=== PATIENT | female | born 1945 | race Caucasian/White ===

== ENCOUNTER 2018-10-10 03:44 | Inpatient (IN) | payer MEDICARE ==
[2018-10-10 04:58] VITALS: BP 129/84
[2018-10-10] MEDS ORDERED: Maalox 30 mL Cup PO PRN (04:59)
[2018-10-10] MEDS ORDERED: Magnesium Hydroxide (MOM) 30 mL UDC PO PRN (04:59)
[2018-10-10] MEDS ORDERED: Albuterol/Ipratropium Neb 3 ML AERS HHN PRN (05:35)
[2018-10-10 06:42] LABS: ALB/GLOB RATIO 1.7 (1.0-1.8); ALBUMIN 3.9 gm/dL (3.7-5.3); ALKALINE PHOSPHATASE 58 U/L (34-104); ANION GAP 11.1 (7.0-16.0); BILIRUBIN,TOTAL 0.4 mg/dL (0.3-1.0); BUN - UREA NITROGEN 21 mg/dL (7-25); CALCIUM SERUM 8.9 mg/dL (8.6-10.3); CARBON DIOXIDE 27.6 mEq/L (21.0-31.0); CHLORIDE 104 mEq/L (98-107); CHOLESTEROL 149 mg/dL (<200); GLUCOSE 114 mg/dL (70-105); HDL -HIGH DENSITY LIPOPROTEIN 60 mg/dL (23-92); POTASSIUM SERUM 3.7 mEq/L (3.5-5.1); SGOT 14 U/L (13-39); SGPT/ALT 9 U/L (7-52); SODIUM SERUM 139 mEq/L (136-145); TOTAL PROTEIN,SERUM 6.2 gm/dL (6.0-8.3); TRIGLYCERIDES 100 mg/dL (<150)
[2018-10-10] MEDS: Albuterol/Ipratropium Neb 3 ML AERS HHN SCH ×3 (06:46→19:05)
[2018-10-10] MEDS: Pantoprazole 40 mg/Packet PO SCH ×2 (07:00→10:00)
[2018-10-10] MEDS ORDERED: Albuterol/Ipratropium Neb 3 ML AERS HHN SCH (07:00)
[2018-10-10] MEDS: Atorvastatin Calcium 10 MG TAB PO SCH (10:00)
--- NOTE | 2018-10-10 13:46 | History & Physical ---
ADMIT DATE: 10/10/2018 IDENTIFYING INFORMATION: The patient is a 73-year-old female. CHIEF COMPLAINT: "I don't know." HISTORY OF PRESENT ILLNESS: The patient reports "I am in good shape." She does not know where she is. She did not know why she is here. She does not know why they sent her here. She was a very poor historian. She was sent here because of agitation and psychosis. The patient is unable to give me any information or participate in meaningful conversation, cannot tell me her age, where she is, why she is here. She believes that she is single. She believes she may have to 2 kids. She was not sure. PAST PSYCHIATRIC HISTORY: Unable to participate or let me know if she has any prior psychiatric treatment. MEDICAL HISTORY: No known drug allergies. PAST MEDICAL HISTORY: The patient has a history of bronchial asthma, hypertension, hyperlipidemia, and constipation. MEDICATIONS: The patient has been on Lexapro 20 mg daily, Namenda 5 mg twice a day, Seroquel 12.5 mg 3 times a day and Geodon 20 mg twice a day. FAMILY AND SOCIAL HISTORY: The patient is not sure if she is . She believes she is single. She believes she may have 2 children. Unable to give further information regarding education because of her dementia. MENTAL STATUS EXAMINATION: The patient is appropriately dressed and well groomed. She was feeding herself. She was alert, unable tell me her age, where she is, why she is here. She reports "I am in good shape", unable to tell me the date, unable to tell me anything about her, how far she went in school. She did for living. She denies any auditory or visual hallucination or paranoia. She denies any current intent to harm herself. Long-term memory is poor. She cannot remember her age, her date of . Recent memory is poor. She cannot remember coming here where she came from. She denies any individuals or paranoia. Her insight and judgment is fair. She does not know that she has a problem. Judgment is poor with her agitated behavior. 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 MEDICAL DIAGNOSES: Asthma, hyperlipidemia and hypertension. INITIAL TREATMENT PLAN: The patient will be continued with Lexapro and we will continue with the Namenda 5 mg twice a day, beating on Geodon keep on Seroquel. ESTIMATED LENGTH OF STAY: 3-7 days. DISCHARGE CRITERIA: Decrease agitation, psychosis after discharge outpatient. JOB# [id number]
--- NOTE | 2018-10-10 20:50 | History & Physical ---
ADMIT DATE: 10/10/2018 HISTORY OF PRESENT ILLNESS: The patient is a 73-year-old female with history of hypertension, COPD, hyperlipidemia, dementia, psychosis, admitted to [facility] Department under Dr. Crow's service. The patient denies any chest pain, shortness of breath, nausea, vomiting, fever or chills. PAST MEDICAL HISTORY: Significant for hypertension, hyperlipidemia, COPD, dementia. PAST SURGICAL HISTORY: No recent surgery. ALLERGIES: None. MEDICATIONS: Follow admission reconciliation. SOCIAL HISTORY: Chronic smoker. No alcohol or drug. FAMILY HISTORY: Noncontributory. REVIEW OF SYSTEMS: RENAL SYSTEM: No history of chronic renal disorder. CARDIOVASCULAR SYSTEM: No coronary artery disease. ENDOCRINE SYSTEM: She has no diabetes or thyroid problem. GASTROINTESTINAL SYSTEM: No upper or lower gastrointestinal bleed. NEUROLOGICAL SYSTEM: Seizure disorder. MUSCULOSKELETAL SYSTEM: No muscular dystrophy. HEMATOLOGIC SYSTEM: No bleeding tendency. RESPIRATORY SYSTEM: She has history of COPD. GENITOURINARY SYSTEM: No dysuria or hematuria. PHYSICAL EXAMINATION: GENERAL: She is awake, alert, confused. VITAL SIGNS: Temperature 98, heart rate 71, blood pressure 131/77. HEENT: Normocephalic. Pupils reacting to light and accommodation. Sclerae clear. NECK: Supple. Negative for lymphadenopathy, JVD or bruit. CHEST: Entry of air bilaterally mildly diminished. No wheezing. HEART: S1, S2 normal. No gallop rhythm. ABDOMEN: Soft, bowel sounds positive. EXTREMITIES: No edema. NEUROLOGIC: Awake, alert, confused. No focal motor deficits. Cranial nerves 2-12 is intact. LABORATORY DATA: Sodium 139, potassium 3.7, BUN 21, creatinine . ASSESSMENT: 1. Hypertension. 2. Hyperlipidemia. 3. Chronic obstructive pulmonary disease. 4. Dementia. 5. Psychosis. PLAN: The patient admitted to the hospital under Dr. Crow's service. Medical problems addressed during hospitalization are psychosis and dementia. Medical problems addressed at discharge are hypertension, hyperlipidemia, COPD. The patient is medically stable for activity. Thank you, Dr. Crow for asking me to see your patient. The patient cleared for activity. JOB# [id number]
[2018-10-11] MEDS: Albuterol/Ipratropium Neb 3 ML AERS HHN SCH ×5 (00:41→20:14)
[2018-10-11] MEDS ORDERED: Pantoprazole 40 mg EC Tab PO SCH (06:30)
[2018-10-11] MEDS: Atorvastatin Calcium 10 MG TAB PO SCH (09:39)
[2018-10-11] MEDS: Nicotine 21 mg/24 hr Tdm TD SCH (10:00)
--- NOTE | 2018-10-11 21:00 | Internal Medicine Prog Note ---
Internal Medicine Subjective - Subjective Service Date: 10/11/18 Patient seen and examined:: with staff Patient is:: awake, verbal, ambulating, confused Per staff patient has:: no adverse event Internal Medicine Objective - Results Result Diagrams: 10/10/18 06:09 Recent Labs: Laboratory Last Values Sodium 139 mEq/L (136-145) 10/10/18 06:09 Potassium 3.7 mEq/L (3.5-5.1) 10/10/18 06:09 Chloride 104 mEq/L (98-107) 10/10/18 06:09 Carbon Dioxide 27.6 mEq/L (21.0-31.0) 10/10/18 06:09 Anion Gap 11.1 (7.0-16.0) 10/10/18 06:09 BUN 21 mg/dL (7-25) 10/10/18 06:09 Creatinine 1.0 mg/dL (0.6-1.2) 10/10/18 06:09 Est GFR ( Amer) TNP 10/10/18 06:09 Est GFR (Non-Af Amer) TNP 10/10/18 06:09 BUN/Creatinine Ratio 21.0 10/10/18 06:09 Glucose 114 mg/dL (70-105) H 10/10/18 06:09 POC Glucose 113 MG/DL (70 - 105) H 10/10/18 04:27 Calcium 8.9 mg/dL (8.6-10.3) 10/10/18 06:09 Total Bilirubin 0.4 mg/dL (0.3-1.0) 10/10/18 06:09 AST 14 U/L (13-39) 10/10/18 06:09 ALT 9 U/L (7-52) 10/10/18 06:09 Alkaline Phosphatase 58 U/L (34-104) 10/10/18 06:09 Total Protein 6.2 gm/dL (6.0-8.3) 10/10/18 06:09 Albumin 3.9 gm/dL (3.7-5.3) 10/10/18 06:09 Globulin 2.3 gm/dL 10/10/18 06:09 Albumin/Globulin Ratio 1.7 (1.0-1.8) 10/10/18 06:09 Triglycerides 100 mg/dL (<150) 10/10/18 06:09 Cholesterol 149 mg/dL (<200) 10/10/18 06:09 LDL Cholesterol Direct 70 mg/dL (75-193) L 10/10/18 06:09 HDL Cholesterol 60 mg/dL (23-92) 10/10/18 06:09 - Physical Exam Vitals and I&O: Vital Signs Temp 98.5 F 10/11/18 19:59 Pulse 68 10/11/18 20:15 Resp 20 10/11/18 20:15 BP 133/72 10/11/18 19:59 Pulse Ox 94 10/11/18 20:15 Intake & Output 10/11/18 10/11/18 10/12/18 06:59 18:59 06:59 Intake Total 240 120 Balance 240 120 Intake: Oral 240 120 Other: # Voids 2 3 # Bowel Movements 0 Active Medications: Current Medications Acetaminophen (Tylenol) 650 mg PO Q4HR PRN PRN Reason: Mild Pain / Temp above 100 Stop: 12/09/18 04:58 Al Hydrox/Mg Hydrox/Simethicone (Maalox) 30 ml PO Q4HR PRN PRN Reason: GI DISTRESS Stop: 12/09/18 04:58 Albuterol/Ipratropium (Duoneb Neb) 3 ml HHN Q6HRT [facility] Stop: 12/09/18 06:59 Last Admin: 10/11/18 20:14 Dose: 3 ml Amlodipine Besylate (Norvasc) 2.5 mg PO DAILY [facility] Stop: 12/09/18 08:59 Last Admin: 10/11/18 09:39 Dose: 2.5 mg Atenolol (Tenormin) 25 mg PO DAILY [facility] Stop: 12/09/18 08:59 Last Admin: 10/11/18 09:41 Dose: 25 mg Atorvastatin Calcium (Lipitor) 10 mg PO DAILY [facility]; Protocol Stop: 12/09/18 08:59 Last Admin: 10/11/18 09:39 Dose: 10 mg Docusate Sodium (Colace) 100 mg PO BID [facility] Stop: 12/09/18 08:59 Last Admin: 10/11/18 16:49 Dose: 100 mg Escitalopram Oxalate (Lexapro) 20 mg PO DAILY [facility]; Protocol Stop: 12/09/18 08:59 Last Admin: 10/11/18 09:39 Dose: 20 mg Lorazepam (Ativan) 0.5 mg PO Q4HR PRN; Protocol PRN Reason: Agitation Stop: 11/09/18 04:58 Magnesium Hydroxide (Milk Of Magnesia) 30 ml PO HS PRN PRN Reason: Constipation Memantine (Namenda) 5 mg PO BID [facility] Stop: 12/09/18 08:59 Last Admin: 10/11/18 16:49 Dose: 5 mg Nicotine (Nicotine Transdermal System) 21 mg TD DAILY [facility] Stop: 12/10/18 08:59 Last Admin: 10/11/18 10:00 Dose: 21 mg Pantoprazole Sodium (Protonix) 40 mg PO DAILY [facility] Stop: 12/11/18 06:29 Quetiapine Fumarate (Seroquel) 12.5 mg PO TIDWM [facility]; Protocol Stop: 12/09/18 08:59 Last Admin: 10/11/18 16:49 Dose: 12.5 mg Zolpidem Tartrate (Ambien) 5 mg PO HS PRN PRN Reason: Insomnia Stop: 12/09/18 04:58 Last Admin: 10/10/18 21:23 Dose: 5 mg General: demented HEENT: NC/AT, PERRLA, EOMI, anicteric sclerae, throat clear Neck: Supple, No JVD, No thyromegaly, +2 carotid pulse wo bruit Lungs: CTAB Cardiovascular: RRR, Normal S1, Normal S2, without murmur Abdomen: soft, non-tender, non-distended Extremities: clear Neurological: no change Internal Medicine Assmt/Plan - Assessment Assessment: 1.HTN. 2.HYPERLIPIDEMIA. 3.COPD. 4.DEMENTIA. 5.PSYCHSIS. - Plan Plan: CONTINUE ON CURRENT MEDICATION AND DIET.
[2018-10-12] MEDS: Albuterol/Ipratropium Neb 3 ML AERS HHN SCH ×4 (01:09→19:57)
--- NOTE | 2018-10-12 01:47 | Progress Notes ---
DATE: 10/11/2018 Case was discussed with staff of the patient, reviewed records. The patient continues to be demented, confused, very poor insight. She is getting breathing treatment today, unable to explain herself or make safe plan for self-care. Does not know where she is, why she is here. She said that she maybe has 2 kids. She has been compliant with the medication with no side effects, no sedation, no nausea, no extrapyramidal symptoms. We will continue to work with the patient in group therapy, milieu therapy and adjust the medications as needed. JOB# [id number]
[2018-10-12] MEDS: Pantoprazole 40 mg EC Tab PO SCH (10:01)
[2018-10-12] MEDS: Atorvastatin Calcium 10 MG TAB PO SCH (10:01)
[2018-10-12] MEDS: Nicotine 21 mg/24 hr Tdm TD SCH (10:05)
--- NOTE | 2018-10-12 19:12 | Internal Medicine Prog Note ---
Internal Medicine Subjective - Subjective Service Date: 10/12/18 Patient seen and examined:: with staff Patient is:: awake, verbal, ambulating, confused Per staff patient has:: no adverse event Internal Medicine Objective - Results Result Diagrams: 10/10/18 06:09 Recent Labs: Laboratory Last Values Sodium 139 mEq/L (136-145) 10/10/18 06:09 Potassium 3.7 mEq/L (3.5-5.1) 10/10/18 06:09 Chloride 104 mEq/L (98-107) 10/10/18 06:09 Carbon Dioxide 27.6 mEq/L (21.0-31.0) 10/10/18 06:09 Anion Gap 11.1 (7.0-16.0) 10/10/18 06:09 BUN 21 mg/dL (7-25) 10/10/18 06:09 Creatinine 1.0 mg/dL (0.6-1.2) 10/10/18 06:09 Est GFR ( Amer) TNP 10/10/18 06:09 Est GFR (Non-Af Amer) TNP 10/10/18 06:09 BUN/Creatinine Ratio 21.0 10/10/18 06:09 Glucose 114 mg/dL (70-105) H 10/10/18 06:09 POC Glucose 113 MG/DL (70 - 105) H 10/10/18 04:27 Calcium 8.9 mg/dL (8.6-10.3) 10/10/18 06:09 Total Bilirubin 0.4 mg/dL (0.3-1.0) 10/10/18 06:09 AST 14 U/L (13-39) 10/10/18 06:09 ALT 9 U/L (7-52) 10/10/18 06:09 Alkaline Phosphatase 58 U/L (34-104) 10/10/18 06:09 Total Protein 6.2 gm/dL (6.0-8.3) 10/10/18 06:09 Albumin 3.9 gm/dL (3.7-5.3) 10/10/18 06:09 Globulin 2.3 gm/dL 10/10/18 06:09 Albumin/Globulin Ratio 1.7 (1.0-1.8) 10/10/18 06:09 Triglycerides 100 mg/dL (<150) 10/10/18 06:09 Cholesterol 149 mg/dL (<200) 10/10/18 06:09 LDL Cholesterol Direct 70 mg/dL (75-193) L 10/10/18 06:09 HDL Cholesterol 60 mg/dL (23-92) 10/10/18 06:09 - Physical Exam Vitals and I&O: Vital Signs Temp 97.9 F 10/12/18 14:00 Pulse 63 10/12/18 14:00 Resp 20 10/12/18 14:00 BP 147/72 10/12/18 14:00 Pulse Ox 98 10/12/18 14:00 Intake & Output 10/12/18 10/12/18 10/13/18 06:59 18:59 06:59 Intake Total 370 1000 Balance 370 1000 Intake: Oral 370 1000 Other: # Voids 3 4 # Bowel Movements 0 1 Active Medications: Current Medications Acetaminophen (Tylenol) 650 mg PO Q4HR PRN PRN Reason: Mild Pain / Temp above 100 Stop: 12/09/18 04:58 Al Hydrox/Mg Hydrox/Simethicone (Maalox) 30 ml PO Q4HR PRN PRN Reason: GI DISTRESS Stop: 12/09/18 04:58 Albuterol/Ipratropium (Duoneb Neb) 3 ml HHN Q6HRT [facility] Stop: 12/09/18 06:59 Last Admin: 10/12/18 13:33 Dose: Not Given Amlodipine Besylate (Norvasc) 2.5 mg PO DAILY [facility] Stop: 12/09/18 08:59 Last Admin: 10/12/18 10:17 Dose: 2.5 mg Atenolol (Tenormin) 25 mg PO DAILY [facility] Stop: 12/09/18 08:59 Last Admin: 10/12/18 10:17 Dose: 25 mg Atorvastatin Calcium (Lipitor) 10 mg PO DAILY [facility]; Protocol Stop: 12/09/18 08:59 Last Admin: 10/12/18 10:01 Dose: 10 mg Docusate Sodium (Colace) 100 mg PO BID [facility] Stop: 12/09/18 08:59 Last Admin: 10/12/18 17:02 Dose: 100 mg Escitalopram Oxalate (Lexapro) 20 mg PO DAILY [facility]; Protocol Stop: 12/09/18 08:59 Last Admin: 10/12/18 10:01 Dose: 20 mg Lorazepam (Ativan) 0.5 mg PO Q4HR PRN; Protocol PRN Reason: Agitation Stop: 11/09/18 04:58 Last Admin: 10/11/18 23:10 Dose: 0.5 mg Magnesium Hydroxide (Milk Of Magnesia) 30 ml PO HS PRN PRN Reason: Constipation Memantine (Namenda) 5 mg PO BID [facility] Stop: 12/09/18 08:59 Last Admin: 10/12/18 17:02 Dose: 5 mg Nicotine (Nicotine Transdermal System) 21 mg TD DAILY [facility] Stop: 12/10/18 08:59 Last Admin: 10/12/18 10:05 Dose: 21 mg Pantoprazole Sodium (Protonix) 40 mg PO DAILY [facility] Stop: 12/11/18 06:29 Last Admin: 10/12/18 10:01 Dose: 40 mg Quetiapine Fumarate (Seroquel) 12.5 mg PO TIDWM [facility]; Protocol Stop: 12/09/18 08:59 Last Admin: 10/12/18 17:02 Dose: 12.5 mg Zolpidem Tartrate (Ambien) 5 mg PO HS PRN PRN Reason: Insomnia Stop: 12/09/18 04:58 Last Admin: 10/11/18 21:00 Dose: 5 mg General: demented HEENT: NC/AT, PERRLA, EOMI, anicteric sclerae, throat clear Neck: Supple, No JVD, No thyromegaly, +2 carotid pulse wo bruit Lungs: CTAB Cardiovascular: RRR, Normal S1, Normal S2, without murmur Abdomen: soft, non-tender, non-distended Extremities: clear Neurological: no change Internal Medicine Assmt/Plan - Assessment Assessment: 1.HTN. 2.HYPERLIPIDEMIA. 3.COPD. 4.DEMENTIA. 5.PSYCHSIS. - Plan Plan: CONTINUE ON CURRENT MEDICATION AND DIET.
[2018-10-13] MEDS: Albuterol/Ipratropium Neb 3 ML AERS HHN SCH ×4 (01:25→20:01)
[2018-10-13] MEDS: Atorvastatin Calcium 10 MG TAB PO SCH (08:31)
[2018-10-13] MEDS: Pantoprazole 40 mg EC Tab PO SCH (08:31)
[2018-10-13] MEDS: Nicotine 21 mg/24 hr Tdm TD SCH (09:50)
--- NOTE | 2018-10-13 10:58 | Internal Medicine Prog Note ---
Internal Medicine Subjective - Subjective Service Date: 10/13/18 Patient seen and examined:: without staff (SHE IS DOING BETTER,LESS CONFUSED.) Patient is:: awake, verbal, ambulating, confused Per staff patient has:: no adverse event Internal Medicine Objective - Results Result Diagrams: 10/10/18 06:09 Recent Labs: Laboratory Last Values Sodium 139 mEq/L (136-145) 10/10/18 06:09 Potassium 3.7 mEq/L (3.5-5.1) 10/10/18 06:09 Chloride 104 mEq/L (98-107) 10/10/18 06:09 Carbon Dioxide 27.6 mEq/L (21.0-31.0) 10/10/18 06:09 Anion Gap 11.1 (7.0-16.0) 10/10/18 06:09 BUN 21 mg/dL (7-25) 10/10/18 06:09 Creatinine 1.0 mg/dL (0.6-1.2) 10/10/18 06:09 Est GFR ( Amer) TNP 10/10/18 06:09 Est GFR (Non-Af Amer) TNP 10/10/18 06:09 BUN/Creatinine Ratio 21.0 10/10/18 06:09 Glucose 114 mg/dL (70-105) H 10/10/18 06:09 POC Glucose 113 MG/DL (70 - 105) H 10/10/18 04:27 Calcium 8.9 mg/dL (8.6-10.3) 10/10/18 06:09 Total Bilirubin 0.4 mg/dL (0.3-1.0) 10/10/18 06:09 AST 14 U/L (13-39) 10/10/18 06:09 ALT 9 U/L (7-52) 10/10/18 06:09 Alkaline Phosphatase 58 U/L (34-104) 10/10/18 06:09 Total Protein 6.2 gm/dL (6.0-8.3) 10/10/18 06:09 Albumin 3.9 gm/dL (3.7-5.3) 10/10/18 06:09 Globulin 2.3 gm/dL 10/10/18 06:09 Albumin/Globulin Ratio 1.7 (1.0-1.8) 10/10/18 06:09 Triglycerides 100 mg/dL (<150) 10/10/18 06:09 Cholesterol 149 mg/dL (<200) 10/10/18 06:09 LDL Cholesterol Direct 70 mg/dL (75-193) L 10/10/18 06:09 HDL Cholesterol 60 mg/dL (23-92) 10/10/18 06:09 - Physical Exam Vitals and I&O: Vital Signs Temp 99.0 F 10/13/18 06:26 Pulse 75 10/13/18 08:32 Resp 18 10/13/18 07:41 BP 141/85 10/13/18 08:32 Pulse Ox 94 10/13/18 06:26 Intake & Output 10/12/18 10/13/18 10/13/18 18:59 06:59 18:59 Intake Total 1000 300 Balance 1000 300 Intake: Oral 1000 300 Other: # Voids 4 2 # Bowel Movements 1 0 Active Medications: Current Medications Acetaminophen (Tylenol) 650 mg PO Q4HR PRN PRN Reason: Mild Pain / Temp above 100 Stop: 12/09/18 04:58 Al Hydrox/Mg Hydrox/Simethicone (Maalox) 30 ml PO Q4HR PRN PRN Reason: GI DISTRESS Stop: 12/09/18 04:58 Albuterol/Ipratropium (Duoneb Neb) 3 ml HHN Q6HRT [facility] Stop: 12/09/18 06:59 Last Admin: 10/13/18 07:41 Dose: Not Given Amlodipine Besylate (Norvasc) 2.5 mg PO DAILY [facility] Stop: 12/09/18 08:59 Last Admin: 10/13/18 08:31 Dose: 2.5 mg Atenolol (Tenormin) 25 mg PO DAILY [facility] Stop: 12/09/18 08:59 Last Admin: 10/13/18 08:32 Dose: 25 mg Atorvastatin Calcium (Lipitor) 10 mg PO DAILY [facility]; Protocol Stop: 12/09/18 08:59 Last Admin: 10/13/18 08:31 Dose: 10 mg Docusate Sodium (Colace) 100 mg PO BID [facility] Stop: 12/09/18 08:59 Last Admin: 10/13/18 08:32 Dose: 100 mg Escitalopram Oxalate (Lexapro) 20 mg PO DAILY [facility]; Protocol Stop: 12/09/18 08:59 Last Admin: 10/13/18 08:32 Dose: 20 mg Lorazepam (Ativan) 0.5 mg PO Q4HR PRN; Protocol PRN Reason: Agitation Stop: 11/09/18 04:58 Last Admin: 10/11/18 23:10 Dose: 0.5 mg Magnesium Hydroxide (Milk Of Magnesia) 30 ml PO HS PRN PRN Reason: Constipation Memantine (Namenda) 5 mg PO BID [facility] Stop: 12/09/18 08:59 Last Admin: 10/13/18 08:29 Dose: 5 mg Nicotine (Nicotine Transdermal System) 21 mg TD DAILY [facility] Stop: 12/10/18 08:59 Last Admin: 10/12/18 10:05 Dose: 21 mg Pantoprazole Sodium (Protonix) 40 mg PO DAILY [facility] Stop: 12/11/18 06:29 Last Admin: 10/13/18 08:31 Dose: 40 mg Quetiapine Fumarate (Seroquel) 12.5 mg PO TIDWM [facility]; Protocol Stop: 12/09/18 08:59 Last Admin: 10/13/18 08:29 Dose: 12.5 mg Zolpidem Tartrate (Ambien) 5 mg PO HS PRN PRN Reason: Insomnia Stop: 12/09/18 04:58 Last Admin: 10/12/18 20:40 Dose: 5 mg General: demented HEENT: NC/AT, PERRLA, EOMI, anicteric sclerae, throat clear Neck: Supple, No JVD, No thyromegaly, +2 carotid pulse wo bruit Lungs: CTAB Cardiovascular: RRR, Normal S1, Normal S2, without murmur Abdomen: soft, non-tender, non-distended Extremities: clear Neurological: no change Internal Medicine Assmt/Plan - Assessment Assessment: 1.HTN. 2.HYPERLIPIDEMIA. 3.COPD. 4.DEMENTIA. 5.PSYCHOSIS. - Plan Plan: CONTINUE ON CURRENT MEDICATION AND DIET.
--- NOTE | 2018-10-13 13:51 | Progress Notes ---
DATE: 10/12/2018 SUBJECTIVE: The patient was seen today on 10/12/2018. The patient is very confused, does not know the year, does not know the month, does not know the place, does not know the city. She states that she has been admitted here before. She is very distracted on exam. Not a good historian, somewhat irritable on exam. Dr. Buitrago saw the patient yesterday, noting that she is very confused, fair compliance, poor insight, ongoing concerns about impulsivity, fair sleep, fair appetite, mostly withdrawn, sometimes yelling at staff. The patient is stating to staff that they are taking things out of the building and the police is going to come. ASSESSMENT: The patient is confused, disoriented, ongoing safety concerns, unruly at times, yelling, ongoing behaviors. We will continue to monitor. The patient may need dose adjustment of medications. [facility]# [id number]
[2018-10-14] MEDS: Albuterol/Ipratropium Neb 3 ML AERS HHN SCH ×4 (00:50→19:40)
[2018-10-14] MEDS: Atorvastatin Calcium 10 MG TAB PO SCH (08:47)
[2018-10-14] MEDS: Pantoprazole 40 mg EC Tab PO SCH (08:49)
--- NOTE | 2018-10-14 12:42 | Progress Notes ---
DATE: 10/13/2018 SUBJECTIVE: The patient is a 73-year-old female, currently in the hospital. Slept for about 8 hours. No agitation. Alert and oriented to name, place, mostly depressed, forgetful, disoriented. The patient repetitive, constantly repeating that she wants to go to the bathroom, ongoing safety concerns, concerns about impulsivity, wandering behaviors, at times restless. The patient talking about the police coming. ASSESSMENT: The patient is confused, disoriented, odd symptoms, wandering behaviors, odd behaviors, repetitive, ruminative, talking about the police. Medications were noted. PLAN: We will continue to monitor. We will continue dosing of Seroquel and Lexapro. [facility]# [id number]
[2018-10-14] MEDS: Nicotine 21 mg/24 hr Tdm TD SCH (12:45)
--- NOTE | 2018-10-14 20:21 | Internal Medicine Prog Note ---
Internal Medicine Subjective - Subjective Service Date: 10/14/18 Patient seen and examined:: with staff Patient is:: awake, verbal, ambulating, confused Per staff patient has:: no adverse event Internal Medicine Objective - Results Result Diagrams: 10/10/18 06:09 Recent Labs: Laboratory Last Values Sodium 139 mEq/L (136-145) 10/10/18 06:09 Potassium 3.7 mEq/L (3.5-5.1) 10/10/18 06:09 Chloride 104 mEq/L (98-107) 10/10/18 06:09 Carbon Dioxide 27.6 mEq/L (21.0-31.0) 10/10/18 06:09 Anion Gap 11.1 (7.0-16.0) 10/10/18 06:09 BUN 21 mg/dL (7-25) 10/10/18 06:09 Creatinine 1.0 mg/dL (0.6-1.2) 10/10/18 06:09 Est GFR ( Amer) TNP 10/10/18 06:09 Est GFR (Non-Af Amer) TNP 10/10/18 06:09 BUN/Creatinine Ratio 21.0 10/10/18 06:09 Glucose 114 mg/dL (70-105) H 10/10/18 06:09 POC Glucose 113 MG/DL (70 - 105) H 10/10/18 04:27 Calcium 8.9 mg/dL (8.6-10.3) 10/10/18 06:09 Total Bilirubin 0.4 mg/dL (0.3-1.0) 10/10/18 06:09 AST 14 U/L (13-39) 10/10/18 06:09 ALT 9 U/L (7-52) 10/10/18 06:09 Alkaline Phosphatase 58 U/L (34-104) 10/10/18 06:09 Total Protein 6.2 gm/dL (6.0-8.3) 10/10/18 06:09 Albumin 3.9 gm/dL (3.7-5.3) 10/10/18 06:09 Globulin 2.3 gm/dL 10/10/18 06:09 Albumin/Globulin Ratio 1.7 (1.0-1.8) 10/10/18 06:09 Triglycerides 100 mg/dL (<150) 10/10/18 06:09 Cholesterol 149 mg/dL (<200) 10/10/18 06:09 LDL Cholesterol Direct 70 mg/dL (75-193) L 10/10/18 06:09 HDL Cholesterol 60 mg/dL (23-92) 10/10/18 06:09 - Physical Exam Vitals and I&O: Vital Signs Temp 99.0 F 10/14/18 14:00 Pulse 85 10/14/18 19:40 Resp 18 10/14/18 19:40 BP 116/81 10/14/18 17:12 Pulse Ox 95 10/14/18 19:40 Intake & Output 10/14/18 10/14/18 10/15/18 06:59 18:59 06:59 Intake Total 1500 Balance 1500 Intake: Oral 1500 Other: # Voids 3 3 # Bowel Movements 0 0 Active Medications: Current Medications Acetaminophen (Tylenol) 650 mg PO Q4HR PRN PRN Reason: Mild Pain / Temp above 100 Stop: 12/09/18 04:58 Al Hydrox/Mg Hydrox/Simethicone (Maalox) 30 ml PO Q4HR PRN PRN Reason: GI DISTRESS Stop: 12/09/18 04:58 Albuterol/Ipratropium (Duoneb Neb) 3 ml HHN Q6HRT [facility] Stop: 12/09/18 06:59 Last Admin: 10/14/18 19:40 Dose: Not Given Amlodipine Besylate (Norvasc) 2.5 mg PO DAILY [facility] Stop: 12/09/18 08:59 Last Admin: 10/14/18 08:53 Dose: 2.5 mg Atenolol (Tenormin) 25 mg PO DAILY [facility] Stop: 12/09/18 08:59 Last Admin: 10/14/18 17:12 Dose: Not Given Atorvastatin Calcium (Lipitor) 10 mg PO DAILY [facility]; Protocol Stop: 12/09/18 08:59 Last Admin: 10/14/18 08:47 Dose: 10 mg Docusate Sodium (Colace) 100 mg PO BID [facility] Stop: 12/09/18 08:59 Last Admin: 10/14/18 17:08 Dose: 100 mg Escitalopram Oxalate (Lexapro) 20 mg PO DAILY [facility]; Protocol Stop: 12/09/18 08:59 Last Admin: 10/14/18 08:47 Dose: 20 mg Lorazepam (Ativan) 0.5 mg PO Q4HR PRN; Protocol PRN Reason: Agitation Stop: 11/09/18 04:58 Last Admin: 10/11/18 23:10 Dose: 0.5 mg Magnesium Hydroxide (Milk Of Magnesia) 30 ml PO HS PRN PRN Reason: Constipation Memantine (Namenda) 5 mg PO BID [facility] Stop: 12/09/18 08:59 Last Admin: 10/14/18 17:08 Dose: 5 mg Nicotine (Nicotine Transdermal System) 21 mg TD DAILY [facility] Stop: 12/10/18 08:59 Last Admin: 10/14/18 12:45 Dose: 21 mg Pantoprazole Sodium (Protonix) 40 mg PO DAILY [facility] Stop: 12/11/18 06:29 Last Admin: 10/14/18 08:49 Dose: 40 mg Quetiapine Fumarate (Seroquel) 12.5 mg PO TIDWM [facility]; Protocol Stop: 12/09/18 08:59 Last Admin: 10/14/18 17:08 Dose: 12.5 mg Zolpidem Tartrate (Ambien) 5 mg PO HS PRN PRN Reason: Insomnia Stop: 12/09/18 04:58 Last Admin: 10/12/18 20:40 Dose: 5 mg General: demented HEENT: NC/AT, PERRLA, EOMI, anicteric sclerae, throat clear Neck: Supple, No JVD, No thyromegaly, +2 carotid pulse wo bruit Lungs: CTAB Cardiovascular: RRR, Normal S1, Normal S2, without murmur Abdomen: soft, non-tender, non-distended Extremities: clear Neurological: no change Internal Medicine Assmt/Plan - Assessment Assessment: 1.HTN. 2.HYPERLIPIDEMIA. 3.COPD. 4.DEMENTIA. 5.PSYCHOSIS. - Plan Plan: CONTINUE ON CURRENT MEDICATION AND DIET. Nutritional Asmnt/Malnutr-PDOC - Dietary Evaluation Malnutrition Findings (Please click <Entered> for more info): Nutritional Asmnt/Malnutrition Start: 10/14/18 14: 03 Text: Status: Complete Freq: Protocol: Document 10/14/18 14:03 GERMAIN (Rec: 10/14/18 14:15 GERMAIN [email or web address]) Nutritional Asmnt/Malnutrition Patient General Information Nutritional Screening Moderate Risk Diagnosis psychosis Pertinent Medical Hx/Surgical Hx bronchial asthma, HTN, hyperlipidemia, constipation Subjective Information Per nurse pt is very confused, not able to participate in communication. PO intake 75- 100% per EMR. Current Diet Order/ Nutrition Support THOM Pertinent Medications lipitor, colace, protonix, seroquel Pertinent Labs 10/10 glucose 114, POC 113 Nutritional Hx/Data Height 1.55 m Height (Calculated Centimeters) 154.9 Current Weight (lbs) 60.781 kg Weight (Calculated Kilograms) 60.8 Weight (Calculated Grams) 97907.4 [place] Body Weight 105 Body Mass Index (BMI) 25.3 Weight Status Overweight GI Symptoms GI Symptoms None Last BM 10/13 Difficult in: None Skin Integrity/Comment: intact Current %PO Good (75-100%) Estimated Nutritional Goals BEE in Kcals: Using Current wt Calories/Kcals/Kg 23-27 Kcals Calculated 0291-2992 Protein: Using Current wt Protein g/k Protein Calculated 61 Fluid: ml 1403-1647ml (1ml/kcal) Nutritional Problem 1. Problem Problem N/A Malnutrition Alert Is there a minimum of two criteria No selected? Query Text:Check all the applicable criteria. A minimum of two criteria are recommended for diagnosis of either severe or non-severe malnutrition. Malnutrition Related to Morbid Obesity Malnutrition related to morbid obesity No Intervention/Recommendation Comments 1. Continue with THOM diet as ordered. 2. Monitor PO intake, wt, labs and skin integrity 3. F/U as low risk in 7 days Expected Outcomes/Goals Expected Outcomes/Goals 1. PO intake to meet at least 75% of nutritional needs. 2. Wt stability, skin to remain intact, labs to approach WNL.
[2018-10-15] MEDS: Albuterol/Ipratropium Neb 3 ML AERS HHN SCH ×3 (01:53→13:08)
[2018-10-15] MEDS: Pantoprazole 40 mg EC Tab PO SCH (09:20)
[2018-10-15] MEDS: Atorvastatin Calcium 10 MG TAB PO SCH (09:20)
[2018-10-15] MEDS: Nicotine 21 mg/24 hr Tdm TD SCH (09:21)
--- NOTE | 2018-10-15 12:54 | Progress Notes ---
DATE: 10/14/2018 SUBJECTIVE: The patient is currently in the hospital, very confused, disoriented, does not know the year, does not know the month, has no idea why she is in the hospital, has no idea where she is going to go. Staff noting she wanders, keeps asking the same questions over and over, very disoriented, confused. The patient is coming from home, apparently resides with family. Per staff, slept about 5-6 hours, AO to name only, confused, forgetful, wandering, depressed, withdrawn. ASSESSMENT: The patient is confused, disoriented, getting irritable at times, angry, very poor memory. PLAN: We will continue to monitor. We are attempting to confirm a safe discharge plan and stabilize the patient further. JOB# [id number]
--- NOTE | 2018-10-15 16:38 | Internal Medicine Prog Note ---
Internal Medicine Subjective - Subjective Service Date: 10/15/18 Patient seen and examined:: without staff Patient is:: awake, verbal, ambulating, confused Per staff patient has:: no adverse event Internal Medicine Objective - Results Result Diagrams: 10/10/18 06:09 Recent Labs: Laboratory Last Values Sodium 139 mEq/L (136-145) 10/10/18 06:09 Potassium 3.7 mEq/L (3.5-5.1) 10/10/18 06:09 Chloride 104 mEq/L (98-107) 10/10/18 06:09 Carbon Dioxide 27.6 mEq/L (21.0-31.0) 10/10/18 06:09 Anion Gap 11.1 (7.0-16.0) 10/10/18 06:09 BUN 21 mg/dL (7-25) 10/10/18 06:09 Creatinine 1.0 mg/dL (0.6-1.2) 10/10/18 06:09 Est GFR ( Amer) TNP 10/10/18 06:09 Est GFR (Non-Af Amer) TNP 10/10/18 06:09 BUN/Creatinine Ratio 21.0 10/10/18 06:09 Glucose 114 mg/dL (70-105) H 10/10/18 06:09 POC Glucose 113 MG/DL (70 - 105) H 10/10/18 04:27 Calcium 8.9 mg/dL (8.6-10.3) 10/10/18 06:09 Total Bilirubin 0.4 mg/dL (0.3-1.0) 10/10/18 06:09 AST 14 U/L (13-39) 10/10/18 06:09 ALT 9 U/L (7-52) 10/10/18 06:09 Alkaline Phosphatase 58 U/L (34-104) 10/10/18 06:09 Total Protein 6.2 gm/dL (6.0-8.3) 10/10/18 06:09 Albumin 3.9 gm/dL (3.7-5.3) 10/10/18 06:09 Globulin 2.3 gm/dL 10/10/18 06:09 Albumin/Globulin Ratio 1.7 (1.0-1.8) 10/10/18 06:09 Triglycerides 100 mg/dL (<150) 10/10/18 06:09 Cholesterol 149 mg/dL (<200) 10/10/18 06:09 LDL Cholesterol Direct 70 mg/dL (75-193) L 10/10/18 06:09 HDL Cholesterol 60 mg/dL (23-92) 10/10/18 06:09 - Physical Exam Vitals and I&O: Vital Signs Temp 98.1 F 10/15/18 14:00 Pulse 82 10/15/18 14:00 Resp 20 10/15/18 14:00 BP 109/77 10/15/18 14:00 Pulse Ox 97 10/15/18 14:00 Intake & Output 10/14/18 10/15/18 10/15/18 18:59 06:59 18:59 Intake Total 1500 120 Balance 1500 120 Intake: Oral 1500 120 Other: # Voids 3 3 # Bowel Movements 0 Active Medications: Current Medications Acetaminophen (Tylenol) 650 mg PO Q4HR PRN PRN Reason: Mild Pain / Temp above 100 Stop: 12/09/18 04:58 Al Hydrox/Mg Hydrox/Simethicone (Maalox) 30 ml PO Q4HR PRN PRN Reason: GI DISTRESS Stop: 12/09/18 04:58 Albuterol/Ipratropium (Duoneb Neb) 3 ml HHN Q6HRT [facility] Stop: 12/09/18 06:59 Last Admin: 10/15/18 13:08 Dose: Not Given Amlodipine Besylate (Norvasc) 2.5 mg PO DAILY [facility] Stop: 12/09/18 08:59 Last Admin: 10/15/18 08:23 Dose: Not Given Atenolol (Tenormin) 25 mg PO DAILY [facility] Stop: 12/09/18 08:59 Last Admin: 10/15/18 08:23 Dose: Not Given Atorvastatin Calcium (Lipitor) 10 mg PO DAILY [facility]; Protocol Stop: 12/09/18 08:59 Last Admin: 10/15/18 09:20 Dose: 10 mg Docusate Sodium (Colace) 100 mg PO BID [facility] Stop: 12/09/18 08:59 Last Admin: 10/15/18 09:20 Dose: 100 mg Escitalopram Oxalate (Lexapro) 20 mg PO DAILY [facility]; Protocol Stop: 12/09/18 08:59 Last Admin: 10/15/18 09:21 Dose: 20 mg Lorazepam (Ativan) 0.5 mg PO Q4HR PRN; Protocol PRN Reason: Agitation Stop: 11/09/18 04:58 Last Admin: 10/15/18 13:25 Dose: 0.5 mg Magnesium Hydroxide (Milk Of Magnesia) 30 ml PO HS PRN PRN Reason: Constipation Memantine (Namenda) 5 mg PO BID [facility] Stop: 12/09/18 08:59 Last Admin: 10/15/18 09:20 Dose: 5 mg Nicotine (Nicotine Transdermal System) 21 mg TD DAILY [facility] Stop: 12/10/18 08:59 Last Admin: 10/15/18 09:21 Dose: 21 mg Pantoprazole Sodium (Protonix) 40 mg PO DAILY [facility] Stop: 12/11/18 06:29 Last Admin: 10/15/18 09:20 Dose: 40 mg Quetiapine Fumarate (Seroquel) 12.5 mg PO TIDWM [facility]; Protocol Stop: 12/09/18 08:59 Last Admin: 10/15/18 13:25 Dose: 12.5 mg Zolpidem Tartrate (Ambien) 5 mg PO HS PRN PRN Reason: Insomnia Stop: 12/09/18 04:58 Last Admin: 10/14/18 23:16 Dose: 5 mg General: demented HEENT: NC/AT, PERRLA, EOMI, anicteric sclerae, throat clear Neck: Supple, No JVD, No thyromegaly, +2 carotid pulse wo bruit Lungs: CTAB Cardiovascular: RRR, Normal S1, Normal S2, without murmur Abdomen: soft, non-tender, non-distended Extremities: clear Neurological: no change Internal Medicine Assmt/Plan - Assessment Assessment: 1.HTN. 2.HYPERLIPIDEMIA. 3.COPD. 4.DEMENTIA. 5.PSYCHOSIS. - Plan Plan: CONTINUE ON CURRENT MEDICATION AND DIET. Nutritional Asmnt/Malnutr-PDOC - Dietary Evaluation Malnutrition Findings (Please click <Entered> for more info): Nutritional Asmnt/Malnutrition Start: 10/14/18 14: 03 Text: Status: Complete Freq: Protocol: Document 10/14/18 14:03 GERMAIN (Rec: 10/14/18 14:15 GERMAIN [email or web address]) Nutritional Asmnt/Malnutrition Patient General Information Nutritional Screening Moderate Risk Diagnosis psychosis Pertinent Medical Hx/Surgical Hx bronchial asthma, HTN, hyperlipidemia, constipation Subjective Information Per nurse pt is very confused, not able to participate in communication. PO intake 75- 100% per EMR. Current Diet Order/ Nutrition Support THOM Pertinent Medications lipitor, colace, protonix, seroquel Pertinent Labs 10/10 glucose 114, POC 113 Nutritional Hx/Data Height 1.55 m Height (Calculated Centimeters) 154.9 Current Weight (lbs) 60.781 kg Weight (Calculated Kilograms) 60.8 Weight (Calculated Grams) 49355.4 [place] Body Weight 105 Body Mass Index (BMI) 25.3 Weight Status Overweight GI Symptoms GI Symptoms None Last BM 10/13 Difficult in: None Skin Integrity/Comment: intact Current %PO Good (75-100%) Estimated Nutritional Goals BEE in Kcals: Using Current wt Calories/Kcals/Kg 23-27 Kcals Calculated 4909-3158 Protein: Using Current wt Protein g/k Protein Calculated 61 Fluid: ml 1403-1647ml (1ml/kcal) Nutritional Problem 1. Problem Problem N/A Malnutrition Alert Is there a minimum of two criteria No selected? Query Text:Check all the applicable criteria. A minimum of two criteria are recommended for diagnosis of either severe or non-severe malnutrition. Malnutrition Related to Morbid Obesity Malnutrition related to morbid obesity No Intervention/Recommendation Comments 1. Continue with THOM diet as ordered. 2. Monitor PO intake, wt, labs and skin integrity 3. F/U as low risk in 7 days Expected Outcomes/Goals Expected Outcomes/Goals 1. PO intake to meet at least 75% of nutritional needs. 2. Wt stability, skin to remain intact, labs to approach WNL.
[2018-10-16] MEDS: Albuterol/Ipratropium Neb 3 ML AERS HHN SCH ×5 (00:54→19:43)
--- NOTE | 2018-10-16 07:33 | Progress Notes ---
DATE: 10/15/2018 SUBJECTIVE: Chart reviewed and the patient interviewed. Also discussed the patient's condition with the staff and reviewed records and labs. The patient is still confused and she is still wandering around the unit in a confused state. The patient also is still agitated, but seems to be less than before and it is easier to redirect her. She also is still forgetful and she still needs lots of instructions. Otherwise, the patient is compliant with taking her medications with no side effects of medications. ASSESSMENT: The patient is still confused and needs lots of redirections. TREATMENT PLAN: We will continue monitoring her condition and her medications closely. Also, continue Lexapro in a dose of 20 mg every day and Namenda 5 mg twice a day as well as Seroquel 12.5 mg 3 times a day. Also, continue adjusting psychotropic medications and follow up closely. [facility]# [id number]
[2018-10-16] MEDS: Nicotine 21 mg/24 hr Tdm TD SCH (09:34)
[2018-10-16] MEDS: Pantoprazole 40 mg EC Tab PO SCH (09:35)
[2018-10-16] MEDS: Atorvastatin Calcium 10 MG TAB PO SCH (09:35)
--- NOTE | 2018-10-16 21:12 | Internal Medicine Prog Note ---
Internal Medicine Subjective - Subjective Service Date: 10/16/18 Patient seen and examined:: without staff Patient is:: awake, verbal, ambulating, confused Per staff patient has:: no adverse event Internal Medicine Objective - Results Result Diagrams: 10/10/18 06:09 Recent Labs: Laboratory Last Values Sodium 139 mEq/L (136-145) 10/10/18 06:09 Potassium 3.7 mEq/L (3.5-5.1) 10/10/18 06:09 Chloride 104 mEq/L (98-107) 10/10/18 06:09 Carbon Dioxide 27.6 mEq/L (21.0-31.0) 10/10/18 06:09 Anion Gap 11.1 (7.0-16.0) 10/10/18 06:09 BUN 21 mg/dL (7-25) 10/10/18 06:09 Creatinine 1.0 mg/dL (0.6-1.2) 10/10/18 06:09 Est GFR ( Amer) TNP 10/10/18 06:09 Est GFR (Non-Af Amer) TNP 10/10/18 06:09 BUN/Creatinine Ratio 21.0 10/10/18 06:09 Glucose 114 mg/dL (70-105) H 10/10/18 06:09 POC Glucose 113 MG/DL (70 - 105) H 10/10/18 04:27 Calcium 8.9 mg/dL (8.6-10.3) 10/10/18 06:09 Total Bilirubin 0.4 mg/dL (0.3-1.0) 10/10/18 06:09 AST 14 U/L (13-39) 10/10/18 06:09 ALT 9 U/L (7-52) 10/10/18 06:09 Alkaline Phosphatase 58 U/L (34-104) 10/10/18 06:09 Total Protein 6.2 gm/dL (6.0-8.3) 10/10/18 06:09 Albumin 3.9 gm/dL (3.7-5.3) 10/10/18 06:09 Globulin 2.3 gm/dL 10/10/18 06:09 Albumin/Globulin Ratio 1.7 (1.0-1.8) 10/10/18 06:09 Triglycerides 100 mg/dL (<150) 10/10/18 06:09 Cholesterol 149 mg/dL (<200) 10/10/18 06:09 LDL Cholesterol Direct 70 mg/dL (75-193) L 10/10/18 06:09 HDL Cholesterol 60 mg/dL (23-92) 10/10/18 06:09 - Physical Exam Vitals and I&O: Vital Signs Temp 98.1 F 10/15/18 14:00 Pulse 83 10/16/18 13:40 Resp 18 10/16/18 13:40 BP 109/77 10/15/18 14:00 Pulse Ox 94 10/16/18 13:40 Intake & Output 10/16/18 10/16/18 10/17/18 06:59 18:59 06:59 Intake Total 120 1350 Balance 120 1350 Intake: Oral 120 1350 Other: # Voids 3 3 # Bowel Movements 0 Stool Characteristics Soft Formed [place] Active Medications: Current Medications Acetaminophen (Tylenol) 650 mg PO Q4HR PRN PRN Reason: Mild Pain / Temp above 100 Stop: 12/09/18 04:58 Al Hydrox/Mg Hydrox/Simethicone (Maalox) 30 ml PO Q4HR PRN PRN Reason: GI DISTRESS Stop: 12/09/18 04:58 Albuterol/Ipratropium (Duoneb Neb) 3 ml HHN Q6HRT [facility] Stop: 12/09/18 06:59 Last Admin: 10/16/18 19:43 Dose: Not Given Amlodipine Besylate (Norvasc) 2.5 mg PO DAILY [facility] Stop: 12/09/18 08:59 Last Admin: 10/16/18 09:36 Dose: Not Given Atenolol (Tenormin) 25 mg PO DAILY [facility] Stop: 12/09/18 08:59 Last Admin: 10/16/18 09:36 Dose: Not Given Atorvastatin Calcium (Lipitor) 10 mg PO DAILY [facility]; Protocol Stop: 12/09/18 08:59 Last Admin: 10/16/18 09:35 Dose: 10 mg Docusate Sodium (Colace) 100 mg PO BID [facility] Stop: 12/09/18 08:59 Last Admin: 10/16/18 16:39 Dose: 100 mg Escitalopram Oxalate (Lexapro) 20 mg PO DAILY [facility]; Protocol Stop: 12/09/18 08:59 Last Admin: 10/16/18 09:36 Dose: 20 mg Lorazepam (Ativan) 0.5 mg PO Q4HR PRN; Protocol PRN Reason: Agitation Stop: 11/09/18 04:58 Last Admin: 10/16/18 16:39 Dose: 0.5 mg Magnesium Hydroxide (Milk Of Magnesia) 30 ml PO HS PRN PRN Reason: Constipation Memantine (Namenda) 5 mg PO BID [facility] Stop: 12/09/18 08:59 Last Admin: 10/16/18 16:38 Dose: 5 mg Nicotine (Nicotine Transdermal System) 21 mg TD DAILY [facility] Stop: 12/10/18 08:59 Last Admin: 10/16/18 09:34 Dose: 21 mg Pantoprazole Sodium (Protonix) 40 mg PO DAILY [facility] Stop: 12/11/18 06:29 Last Admin: 10/16/18 09:35 Dose: 40 mg Quetiapine Fumarate (Seroquel) 12.5 mg PO TIDWM [facility]; Protocol Stop: 12/09/18 08:59 Last Admin: 10/16/18 16:39 Dose: 12.5 mg Zolpidem Tartrate (Ambien) 5 mg PO HS PRN PRN Reason: Insomnia Stop: 12/09/18 04:58 Last Admin: 10/14/18 23:16 Dose: 5 mg General: demented HEENT: NC/AT, PERRLA, EOMI, anicteric sclerae, throat clear Neck: Supple, No JVD, No thyromegaly, +2 carotid pulse wo bruit Lungs: CTAB Cardiovascular: RRR, Normal S1, Normal S2, without murmur Abdomen: soft, non-tender, non-distended Extremities: clear Neurological: no change Internal Medicine Assmt/Plan - Assessment Assessment: 1.HTN. 2.HYPERLIPIDEMIA. 3.COPD. 4.DEMENTIA. 5.PSYCHOSIS. - Plan Plan: CONTINUE ON CURRENT MEDICATION AND DIET. Nutritional Asmnt/Malnutr-PDOC - Dietary Evaluation Malnutrition Findings (Please click <Entered> for more info): Nutritional Asmnt/Malnutrition Start: 10/14/18 14: 03 Text: Status: Complete Freq: Protocol: Document 10/14/18 14:03 GERMAIN (Rec: 10/14/18 14:15 GERMAIN [email or web address]) Nutritional Asmnt/Malnutrition Patient General Information Nutritional Screening Moderate Risk Diagnosis psychosis Pertinent Medical Hx/Surgical Hx bronchial asthma, HTN, hyperlipidemia, constipation Subjective Information Per nurse pt is very confused, not able to participate in communication. PO intake 75- 100% per EMR. Current Diet Order/ Nutrition Support THOM Pertinent Medications lipitor, colace, protonix, seroquel Pertinent Labs 10/10 glucose 114, POC 113 Nutritional Hx/Data Height 1.55 m Height (Calculated Centimeters) 154.9 Current Weight (lbs) 60.781 kg Weight (Calculated Kilograms) 60.8 Weight (Calculated Grams) 35563.4 [place] Body Weight 105 Body Mass Index (BMI) 25.3 Weight Status Overweight GI Symptoms GI Symptoms None Last BM 10/13 Difficult in: None Skin Integrity/Comment: intact Current %PO Good (75-100%) Estimated Nutritional Goals BEE in Kcals: Using Current wt Calories/Kcals/Kg 23-27 Kcals Calculated 4556-4702 Protein: Using Current wt Protein g/k Protein Calculated 61 Fluid: ml 1403-1647ml (1ml/kcal) Nutritional Problem 1. Problem Problem N/A Malnutrition Alert Is there a minimum of two criteria No selected? Query Text:Check all the applicable criteria. A minimum of two criteria are recommended for diagnosis of either severe or non-severe malnutrition. Malnutrition Related to Morbid Obesity Malnutrition related to morbid obesity No Intervention/Recommendation Comments 1. Continue with THOM diet as ordered. 2. Monitor PO intake, wt, labs and skin integrity 3. F/U as low risk in 7 days Expected Outcomes/Goals Expected Outcomes/Goals 1. PO intake to meet at least 75% of nutritional needs. 2. Wt stability, skin to remain intact, labs to approach WNL.
[2018-10-17] MEDS: Albuterol/Ipratropium Neb 3 ML AERS HHN SCH ×4 (01:55→20:44)
[2018-10-17] MEDS: Atorvastatin Calcium 10 MG TAB PO SCH (08:22)
[2018-10-17] MEDS: Pantoprazole 40 mg EC Tab PO SCH (08:23)
[2018-10-17] MEDS: Nicotine 21 mg/24 hr Tdm TD SCH (08:25)
--- NOTE | 2018-10-17 14:42 | Progress Notes ---
DATE: 10/16/2018 DATE OF SERVICE: 10/16/2018 SUBJECTIVE: Chart reviewed and the patient interviewed. Also discussed the patient's condition with the staff and reviewed records and labs. The patient is still confused and still needs lots of redirections. The patient also is still interacting minimally with others. The patient also still has poor hygiene and still needs total care. Otherwise, the patient is compliant with taking her medications with no side effect of medications. ASSESSMENT: The patient is still confused and needs close monitoring. TREATMENT PLAN: Continue to monitor her behavior and her condition closely. Also, continue to work on her adjusting of her psychotropic medications and also on discharge plans. Tried to call the patient's daughter yesterday and left her a message. JOB# [id number]
--- NOTE | 2018-10-17 16:39 | Progress Notes ---
DATE: 10/17/2018 The patient is currently in the hospital, wandering, confused, disoriented, does not know what is going on or why she is here. Wandering behaviors, ongoing safety concerns, poor orientation and mostly keeping to herself, staying in her room, repetitious, and isolative. Per social service liaison, the patient will be going to [place] upon further stabilization. ASSESSMENT: The patient is confused, disoriented, ongoing safety concerns. PLAN: We will continue to monitor. Continue Seroquel dosing and Lexapro. JOB# [id number]
--- NOTE | 2018-10-17 17:58 | General Progress Note ---
Subjective - Review of Systems Service Date: 10/17/18 Subjective: resting comfortably no distress Objective - Results Result Diagrams: 10/10/18 06:09 Recent Labs: Laboratory Last Values Sodium 139 mEq/L (136-145) 10/10/18 06:09 Potassium 3.7 mEq/L (3.5-5.1) 10/10/18 06:09 Chloride 104 mEq/L (98-107) 10/10/18 06:09 Carbon Dioxide 27.6 mEq/L (21.0-31.0) 10/10/18 06:09 Anion Gap 11.1 (7.0-16.0) 10/10/18 06:09 BUN 21 mg/dL (7-25) 10/10/18 06:09 Creatinine 1.0 mg/dL (0.6-1.2) 10/10/18 06:09 Est GFR ( Amer) TNP 10/10/18 06:09 Est GFR (Non-Af Amer) TNP 10/10/18 06:09 BUN/Creatinine Ratio 21.0 10/10/18 06:09 Glucose 114 mg/dL (70-105) H 10/10/18 06:09 POC Glucose 113 MG/DL (70 - 105) H 10/10/18 04:27 Calcium 8.9 mg/dL (8.6-10.3) 10/10/18 06:09 Total Bilirubin 0.4 mg/dL (0.3-1.0) 10/10/18 06:09 AST 14 U/L (13-39) 10/10/18 06:09 ALT 9 U/L (7-52) 10/10/18 06:09 Alkaline Phosphatase 58 U/L (34-104) 10/10/18 06:09 Total Protein 6.2 gm/dL (6.0-8.3) 10/10/18 06:09 Albumin 3.9 gm/dL (3.7-5.3) 10/10/18 06:09 Globulin 2.3 gm/dL 10/10/18 06:09 Albumin/Globulin Ratio 1.7 (1.0-1.8) 10/10/18 06:09 Triglycerides 100 mg/dL (<150) 10/10/18 06:09 Cholesterol 149 mg/dL (<200) 10/10/18 06:09 LDL Cholesterol Direct 70 mg/dL (75-193) L 10/10/18 06:09 HDL Cholesterol 60 mg/dL (23-92) 10/10/18 06:09 - Physical Exam Vitals and I&O: Vital Signs Temp 98.1 F 10/15/18 14:00 Pulse 85 10/17/18 12:40 Resp 16 10/17/18 17:36 BP 109/77 10/15/18 14:00 Pulse Ox 93 10/17/18 12:40 Intake & Output 10/16/18 10/17/18 10/17/18 18:59 06:59 18:59 Intake Total 1350 120 Balance 1350 120 Intake: Oral 1350 120 Other: # Voids 3 2 # Bowel Movements 0 0 Stool Characteristics Soft Formed Brown Active Medications: Current Medications Acetaminophen (Tylenol) 650 mg PO Q4HR PRN PRN Reason: Mild Pain / Temp above 100 Stop: 12/09/18 04:58 Al Hydrox/Mg Hydrox/Simethicone (Maalox) 30 ml PO Q4HR PRN PRN Reason: GI DISTRESS Stop: 12/09/18 04:58 Albuterol/Ipratropium (Duoneb Neb) 3 ml HHN Q6HRT [facility] Stop: 12/09/18 06:59 Last Admin: 10/17/18 12:40 Dose: Not Given Amlodipine Besylate (Norvasc) 2.5 mg PO DAILY [facility] Stop: 12/09/18 08:59 Last Admin: 10/17/18 08:24 Dose: Not Given Atenolol (Tenormin) 25 mg PO DAILY [facility] Stop: 12/09/18 08:59 Last Admin: 10/17/18 08:25 Dose: Not Given Atorvastatin Calcium (Lipitor) 10 mg PO DAILY [facility]; Protocol Stop: 12/09/18 08:59 Last Admin: 10/17/18 08:22 Dose: 10 mg Docusate Sodium (Colace) 100 mg PO BID [facility] Stop: 12/09/18 08:59 Last Admin: 10/17/18 16:36 Dose: 100 mg Escitalopram Oxalate (Lexapro) 20 mg PO DAILY [facility]; Protocol Stop: 12/09/18 08:59 Last Admin: 10/17/18 08:23 Dose: 20 mg Magnesium Hydroxide (Milk Of Magnesia) 30 ml PO HS PRN PRN Reason: Constipation Memantine (Namenda) 5 mg PO BID [facility] Stop: 12/09/18 08:59 Last Admin: 10/17/18 16:36 Dose: 5 mg Nicotine (Nicotine Transdermal System) 21 mg TD DAILY [facility] Stop: 12/10/18 08:59 Last Admin: 10/17/18 08:25 Dose: Not Given Pantoprazole Sodium (Protonix) 40 mg PO DAILY [facility] Stop: 12/11/18 06:29 Last Admin: 10/17/18 08:23 Dose: 40 mg Quetiapine Fumarate (Seroquel) 12.5 mg PO TIDWM [facility]; Protocol Stop: 12/09/18 08:59 Last Admin: 10/17/18 16:35 Dose: 12.5 mg General: No acute distress HEENT: Atraumatic, PERRLA Neck: Supple, JVD Cardiovascular: Regular rate, Normal S1, Normal S2 Lungs: Clear to auscultation Abdomen: Bowel sounds, Soft Assessment/Plan - Assessment Assessment: 1.HTN. 2.HYPERLIPIDEMIA. 3.COPD. 4.DEMENTIA. 5.PSYCHOSIS. - Plan Plan: continue current treatment Nutritional Asmnt/Malnutr-PDOC - Dietary Evaluation Malnutrition Findings (Please click <Entered> for more info): Nutritional Asmnt/Malnutrition Start: 10/14/18 14: 03 Text: Status: Complete Freq: Protocol: Document 10/14/18 14:03 LCHENG (Rec: 10/14/18 14:15 [email or web address]) Nutritional Asmnt/Malnutrition Patient General Information Nutritional Screening Moderate Risk Diagnosis psychosis Pertinent Medical Hx/Surgical Hx bronchial asthma, HTN, hyperlipidemia, constipation Subjective Information Per nurse pt is very confused, not able to participate in communication. PO intake 75- 100% per EMR. Current Diet Order/ Nutrition Support THOM Pertinent Medications lipitor, colace, protonix, seroquel Pertinent Labs 10/10 glucose 114, POC 113 Nutritional Hx/Data Height 1.55 m Height (Calculated Centimeters) 154.9 Current Weight (lbs) 60.781 kg Weight (Calculated Kilograms) 60.8 Weight (Calculated Grams) 83430.4 [place] Body Weight 105 Body Mass Index (BMI) 25.3 Weight Status Overweight GI Symptoms GI Symptoms None Last BM 10/13 Difficult in: None Skin Integrity/Comment: intact Current %PO Good (75-100%) Estimated Nutritional Goals BEE in Kcals: Using Current wt Calories/Kcals/Kg 23-27 Kcals Calculated 2928-8291 Protein: Using Current wt Protein g/k Protein Calculated 61 Fluid: ml 1403-1647ml (1ml/kcal) Nutritional Problem 1. Problem Problem N/A Malnutrition Alert Is there a minimum of two criteria No selected? Query Text:Check all the applicable criteria. A minimum of two criteria are recommended for diagnosis of either severe or non-severe malnutrition. Malnutrition Related to Morbid Obesity Malnutrition related to morbid obesity No Intervention/Recommendation Comments 1. Continue with THOM diet as ordered. 2. Monitor PO intake, wt, labs and skin integrity 3. F/U as low risk in 7 days Expected Outcomes/Goals Expected Outcomes/Goals 1. PO intake to meet at least 75% of nutritional needs. 2. Wt stability, skin to remain intact, labs to approach WNL.
[2018-10-18] MEDS: Albuterol/Ipratropium Neb 3 ML AERS HHN SCH ×4 (00:29→19:37)
[2018-10-18] MEDS: Nicotine 21 mg/24 hr Tdm TD SCH (09:00)
[2018-10-18] MEDS: Pantoprazole 40 mg EC Tab PO SCH ×2 (10:15→10:16)
[2018-10-18] MEDS: Atorvastatin Calcium 10 MG TAB PO SCH (10:17)
--- NOTE | 2018-10-18 18:05 | Progress Notes ---
DATE: 10/18/2018 SUBJECTIVE: The patient remains confused, disoriented, needing a lot of prompting, redirection and really does not know why she is here, what is going on. She is generally more redirectable, minimally interactive making some nonsensical statements, repetitive and ruminative. ASSESSMENT: The patient is confused, needing ongoing close monitoring and redirection, prompting, very forgetful, depressed, withdrawn appearing. We will continue to monitor the patient and social media coordinator notes. The patient will be going to [facility] upon further stabilization. Medications were noted. JOB# [id number]
--- NOTE | 2018-10-18 19:02 | General Progress Note ---
Subjective - Review of Systems Service Date: 10/18/18 Subjective: resting comfortably no distress Objective - Results Result Diagrams: 10/10/18 06:09 Recent Labs: Laboratory Last Values Sodium 139 mEq/L (136-145) 10/10/18 06:09 Potassium 3.7 mEq/L (3.5-5.1) 10/10/18 06:09 Chloride 104 mEq/L (98-107) 10/10/18 06:09 Carbon Dioxide 27.6 mEq/L (21.0-31.0) 10/10/18 06:09 Anion Gap 11.1 (7.0-16.0) 10/10/18 06:09 BUN 21 mg/dL (7-25) 10/10/18 06:09 Creatinine 1.0 mg/dL (0.6-1.2) 10/10/18 06:09 Est GFR ( Amer) TNP 10/10/18 06:09 Est GFR (Non-Af Amer) TNP 10/10/18 06:09 BUN/Creatinine Ratio 21.0 10/10/18 06:09 Glucose 114 mg/dL (70-105) H 10/10/18 06:09 POC Glucose 113 MG/DL (70 - 105) H 10/10/18 04:27 Calcium 8.9 mg/dL (8.6-10.3) 10/10/18 06:09 Total Bilirubin 0.4 mg/dL (0.3-1.0) 10/10/18 06:09 AST 14 U/L (13-39) 10/10/18 06:09 ALT 9 U/L (7-52) 10/10/18 06:09 Alkaline Phosphatase 58 U/L (34-104) 10/10/18 06:09 Total Protein 6.2 gm/dL (6.0-8.3) 10/10/18 06:09 Albumin 3.9 gm/dL (3.7-5.3) 10/10/18 06:09 Globulin 2.3 gm/dL 10/10/18 06:09 Albumin/Globulin Ratio 1.7 (1.0-1.8) 10/10/18 06:09 Triglycerides 100 mg/dL (<150) 10/10/18 06:09 Cholesterol 149 mg/dL (<200) 10/10/18 06:09 LDL Cholesterol Direct 70 mg/dL (75-193) L 10/10/18 06:09 HDL Cholesterol 60 mg/dL (23-92) 10/10/18 06:09 - Physical Exam Vitals and I&O: Vital Signs Temp 97.6 F 10/18/18 14:00 Pulse 53 10/18/18 14:00 Resp 18 10/18/18 14:00 BP 109/66 10/18/18 14:00 Pulse Ox 94 10/18/18 14:00 Intake & Output 10/18/18 10/18/18 10/19/18 06:59 18:59 06:59 Intake Total 240 Balance 240 Intake: Oral 240 Other: # Voids 2 # Bowel Movements 1 Active Medications: Current Medications Acetaminophen (Tylenol) 650 mg PO Q4HR PRN PRN Reason: Mild Pain / Temp above 100 Stop: 12/09/18 04:58 Last Admin: 10/18/18 10:18 Dose: 650 mg Al Hydrox/Mg Hydrox/Simethicone (Maalox) 30 ml PO Q4HR PRN PRN Reason: GI DISTRESS Stop: 12/09/18 04:58 Last Admin: 10/18/18 10:21 Dose: 30 ml Albuterol/Ipratropium (Duoneb Neb) 3 ml HHN Q6HRT [facility] Stop: 12/09/18 06:59 Last Admin: 10/18/18 12:13 Dose: Not Given Amlodipine Besylate (Norvasc) 2.5 mg PO DAILY [facility] Stop: 12/09/18 08:59 Last Admin: 10/18/18 09:00 Dose: Not Given Atenolol (Tenormin) 25 mg PO DAILY [facility] Stop: 12/09/18 08:59 Last Admin: 10/18/18 10:19 Dose: 25 mg Atorvastatin Calcium (Lipitor) 10 mg PO DAILY [facility]; Protocol Stop: 12/09/18 08:59 Last Admin: 10/18/18 10:17 Dose: 10 mg Docusate Sodium (Colace) 100 mg PO BID [facility] Stop: 12/09/18 08:59 Last Admin: 10/18/18 10:17 Dose: 100 mg Escitalopram Oxalate (Lexapro) 20 mg PO DAILY [facility]; Protocol Stop: 12/09/18 08:59 Last Admin: 10/18/18 10:17 Dose: 20 mg Magnesium Hydroxide (Milk Of Magnesia) 30 ml PO HS PRN PRN Reason: Constipation Memantine (Namenda) 5 mg PO BID [facility] Stop: 12/09/18 08:59 Last Admin: 10/18/18 10:17 Dose: 5 mg Nicotine (Nicotine Transdermal System) 21 mg TD DAILY [facility] Stop: 12/10/18 08:59 Last Admin: 10/18/18 09:00 Dose: Not Given Pantoprazole Sodium (Protonix) 40 mg PO DAILY [facility] Stop: 12/11/18 06:29 Last Admin: 10/18/18 10:16 Dose: 40 mg Quetiapine Fumarate (Seroquel) 12.5 mg PO TIDWM [facility]; Protocol Stop: 12/09/18 08:59 Last Admin: 10/18/18 10:18 Dose: 12.5 mg General: No acute distress HEENT: Atraumatic, PERRLA Neck: Supple, JVD Cardiovascular: Regular rate, Normal S1, Normal S2 Lungs: Clear to auscultation Abdomen: Bowel sounds, Soft Assessment/Plan - Assessment Assessment: 1.HTN. 2.HYPERLIPIDEMIA. 3.COPD. 4.DEMENTIA. 5.PSYCHOSIS. - Plan Plan: continue current treatment Nutritional Asmnt/Malnutr-PDOC - Dietary Evaluation Malnutrition Findings (Please click <Entered> for more info): Nutritional Asmnt/Malnutrition Start: 10/14/18 14: 03 Text: Status: Complete Freq: Protocol: Document 10/14/18 14:03 LCHENG (Rec: 10/14/18 14:15 [email or web address]) Nutritional Asmnt/Malnutrition Patient General Information Nutritional Screening Moderate Risk Diagnosis psychosis Pertinent Medical Hx/Surgical Hx bronchial asthma, HTN, hyperlipidemia, constipation Subjective Information Per nurse pt is very confused, not able to participate in communication. PO intake 75- 100% per EMR. Current Diet Order/ Nutrition Support THOM Pertinent Medications lipitor, colace, protonix, seroquel Pertinent Labs 10/10 glucose 114, POC 113 Nutritional Hx/Data Height 1.55 m Height (Calculated Centimeters) 154.9 Current Weight (lbs) 60.781 kg Weight (Calculated Kilograms) 60.8 Weight (Calculated Grams) 34408.4 [place] Body Weight 105 Body Mass Index (BMI) 25.3 Weight Status Overweight GI Symptoms GI Symptoms None Last BM 10/13 Difficult in: None Skin Integrity/Comment: intact Current %PO Good (75-100%) Estimated Nutritional Goals BEE in Kcals: Using Current wt Calories/Kcals/Kg 23-27 Kcals Calculated 2172-9228 Protein: Using Current wt Protein g/k Protein Calculated 61 Fluid: ml 1403-1647ml (1ml/kcal) Nutritional Problem 1. Problem Problem N/A Malnutrition Alert Is there a minimum of two criteria No selected? Query Text:Check all the applicable criteria. A minimum of two criteria are recommended for diagnosis of either severe or non-severe malnutrition. Malnutrition Related to Morbid Obesity Malnutrition related to morbid obesity No Intervention/Recommendation Comments 1. Continue with THOM diet as ordered. 2. Monitor PO intake, wt, labs and skin integrity 3. F/U as low risk in 7 days Expected Outcomes/Goals Expected Outcomes/Goals 1. PO intake to meet at least 75% of nutritional needs. 2. Wt stability, skin to remain intact, labs to approach WNL.
[2018-10-19] MEDS: Albuterol/Ipratropium Neb 3 ML AERS HHN SCH ×3 (01:24→12:30)
[2018-10-19] MEDS: Pantoprazole 40 mg EC Tab PO SCH (08:28)
[2018-10-19] MEDS: Nicotine 21 mg/24 hr Tdm TD SCH (08:29)
[2018-10-19] MEDS: Atorvastatin Calcium 10 MG TAB PO SCH (08:29)
[2018-10-19] MEDS ORDERED: Albuterol/Ipratropium Neb 3 ML AERS HHN PRN (13:14)
--- NOTE | 2018-10-19 14:28 | General Progress Note ---
Subjective - Review of Systems Service Date: 10/19/18 Subjective: resting comfortably no distress Objective - Results Result Diagrams: 10/10/18 06:09 Recent Labs: Laboratory Last Values Sodium 139 mEq/L (136-145) 10/10/18 06:09 Potassium 3.7 mEq/L (3.5-5.1) 10/10/18 06:09 Chloride 104 mEq/L (98-107) 10/10/18 06:09 Carbon Dioxide 27.6 mEq/L (21.0-31.0) 10/10/18 06:09 Anion Gap 11.1 (7.0-16.0) 10/10/18 06:09 BUN 21 mg/dL (7-25) 10/10/18 06:09 Creatinine 1.0 mg/dL (0.6-1.2) 10/10/18 06:09 Est GFR ( Amer) TNP 10/10/18 06:09 Est GFR (Non-Af Amer) TNP 10/10/18 06:09 BUN/Creatinine Ratio 21.0 10/10/18 06:09 Glucose 114 mg/dL (70-105) H 10/10/18 06:09 POC Glucose 113 MG/DL (70 - 105) H 10/10/18 04:27 Calcium 8.9 mg/dL (8.6-10.3) 10/10/18 06:09 Total Bilirubin 0.4 mg/dL (0.3-1.0) 10/10/18 06:09 AST 14 U/L (13-39) 10/10/18 06:09 ALT 9 U/L (7-52) 10/10/18 06:09 Alkaline Phosphatase 58 U/L (34-104) 10/10/18 06:09 Total Protein 6.2 gm/dL (6.0-8.3) 10/10/18 06:09 Albumin 3.9 gm/dL (3.7-5.3) 10/10/18 06:09 Globulin 2.3 gm/dL 10/10/18 06:09 Albumin/Globulin Ratio 1.7 (1.0-1.8) 10/10/18 06:09 Triglycerides 100 mg/dL (<150) 10/10/18 06:09 Cholesterol 149 mg/dL (<200) 10/10/18 06:09 LDL Cholesterol Direct 70 mg/dL (75-193) L 10/10/18 06:09 HDL Cholesterol 60 mg/dL (23-92) 10/10/18 06:09 - Physical Exam Vitals and I&O: Vital Signs Temp 98 F 10/19/18 06:22 Pulse 56 10/19/18 08:08 Resp 20 10/19/18 11:08 BP 119/60 10/19/18 08:08 Pulse Ox 98 10/19/18 06:22 Intake & Output 10/18/18 10/19/18 10/19/18 18:59 06:59 18:59 Intake Total 480 Balance 480 Intake: Oral 480 Other: # Voids 1 # Bowel Movements 1 Active Medications: Current Medications Acetaminophen (Tylenol) 650 mg PO Q4HR PRN PRN Reason: Mild Pain / Temp above 100 Stop: 12/09/18 04:58 Last Admin: 10/18/18 10:18 Dose: 650 mg Al Hydrox/Mg Hydrox/Simethicone (Maalox) 30 ml PO Q4HR PRN PRN Reason: GI DISTRESS Stop: 12/09/18 04:58 Last Admin: 10/18/18 10:21 Dose: 30 ml Albuterol/Ipratropium (Duoneb Neb) 3 ml HHN Q6HR PRN PRN Reason: Wheezing Stop: 12/18/18 13:13 Amlodipine Besylate (Norvasc) 2.5 mg PO DAILY [facility] Stop: 12/09/18 08:59 Last Admin: 10/19/18 08:08 Dose: Not Given Atenolol (Tenormin) 25 mg PO DAILY [facility] Stop: 12/09/18 08:59 Last Admin: 10/19/18 08:08 Dose: Not Given Atorvastatin Calcium (Lipitor) 10 mg PO DAILY [facility]; Protocol Stop: 12/09/18 08:59 Last Admin: 10/19/18 08:29 Dose: 10 mg Docusate Sodium (Colace) 100 mg PO BID [facility] Stop: 12/09/18 08:59 Last Admin: 10/19/18 08:29 Dose: 100 mg Escitalopram Oxalate (Lexapro) 20 mg PO DAILY [facility]; Protocol Stop: 12/09/18 08:59 Last Admin: 10/19/18 08:28 Dose: 20 mg Magnesium Hydroxide (Milk Of Magnesia) 30 ml PO HS PRN PRN Reason: Constipation Memantine (Namenda) 5 mg PO BID [facility] Stop: 12/09/18 08:59 Last Admin: 10/19/18 08:28 Dose: 5 mg Nicotine (Nicotine Transdermal System) 21 mg TD DAILY [facility] Stop: 12/10/18 08:59 Last Admin: 10/19/18 08:29 Dose: Not Given Pantoprazole Sodium (Protonix) 40 mg PO DAILY [facility] Stop: 12/11/18 06:29 Last Admin: 10/19/18 08:28 Dose: 40 mg Quetiapine Fumarate (Seroquel) 25 mg PO TIDWM [facility]; Protocol Stop: 12/18/18 11:59 General: No acute distress HEENT: Atraumatic, PERRLA Neck: Supple, JVD Cardiovascular: Regular rate, Normal S1, Normal S2 Lungs: Clear to auscultation Abdomen: Bowel sounds, Soft Assessment/Plan - Assessment Assessment: 1.HTN. 2.HYPERLIPIDEMIA. 3.COPD. 4.DEMENTIA. 5.PSYCHOSIS. - Plan Plan: continue current treatment Nutritional Asmnt/Malnutr-PDOC - Dietary Evaluation Malnutrition Findings (Please click <Entered> for more info): Nutritional Asmnt/Malnutrition Start: 10/14/18 14: 03 Text: Status: Complete Freq: Protocol: Document 10/14/18 14:03 LCHENG (Rec: 10/14/18 14:15 [email or web address] [email or web address]) Nutritional Asmnt/Malnutrition Patient General Information Nutritional Screening Moderate Risk Diagnosis psychosis Pertinent Medical Hx/Surgical Hx bronchial asthma, HTN, hyperlipidemia, constipation Subjective Information Per nurse pt is very confused, not able to participate in communication. PO intake 75- 100% per EMR. Current Diet Order/ Nutrition Support THOM Pertinent Medications lipitor, colace, protonix, seroquel Pertinent Labs 10/10 glucose 114, POC 113 Nutritional Hx/Data Height 1.55 m Height (Calculated Centimeters) 154.9 Current Weight (lbs) 60.781 kg Weight (Calculated Kilograms) 60.8 Weight (Calculated Grams) 14846.4 [place] Body Weight 105 Body Mass Index (BMI) 25.3 Weight Status Overweight GI Symptoms GI Symptoms None Last BM 10/13 Difficult in: None Skin Integrity/Comment: intact Current %PO Good (75-100%) Estimated Nutritional Goals BEE in Kcals: Using Current wt Calories/Kcals/Kg 23-27 Kcals Calculated 2018-9447 Protein: Using Current wt Protein g/k Protein Calculated 61 Fluid: ml 1403-1647ml (1ml/kcal) Nutritional Problem 1. Problem Problem N/A Malnutrition Alert Is there a minimum of two criteria No selected? Query Text:Check all the applicable criteria. A minimum of two criteria are recommended for diagnosis of either severe or non-severe malnutrition. Malnutrition Related to Morbid Obesity Malnutrition related to morbid obesity No Intervention/Recommendation Comments 1. Continue with THOM diet as ordered. 2. Monitor PO intake, wt, labs and skin integrity 3. F/U as low risk in 7 days Expected Outcomes/Goals Expected Outcomes/Goals 1. PO intake to meet at least 75% of nutritional needs. 2. Wt stability, skin to remain intact, labs to approach WNL.
[2018-10-20] MEDS: Atorvastatin Calcium 10 MG TAB PO SCH (08:48)
[2018-10-20] MEDS: Pantoprazole 40 mg EC Tab PO SCH (08:48)
[2018-10-20] MEDS: Nicotine 21 mg/24 hr Tdm TD SCH (08:51)
--- NOTE | 2018-10-20 14:18 | Progress Notes ---
DATE: 10/19/2018 SUBJECTIVE: Chart reviewed and the patient interviewed. Also discussed the patient's condition with the staff and reviewed records and labs. The patient is still confused and forgetful and still needs lots of redirections. The patient also still wandering on the unit and entering other patients' rooms regardless her safety exhibit and is intrusive to others. The patient also is still repeating questions and she is still argumentative. Otherwise, the patient is compliant with taking medications with no side effects. ASSESSMENT: The patient is still psychotic and agitated. TREATMENT PLAN: Continue to monitor her behavior and condition closely. Also continue adjusting psychotropic medications and the patient continued to take Seroquel 12.5 mg and we will increase it to twice a day and also continue Lexapro and continue to follow up. JOB# [id number]
--- NOTE | 2018-10-20 21:15 | Internal Medicine Prog Note ---
Internal Medicine Subjective - Subjective Service Date: 10/20/18 Patient seen and examined:: with staff Patient is:: awake, verbal, ambulating, confused Per staff patient has:: no adverse event Internal Medicine Objective - Results Result Diagrams: 10/10/18 06:09 Recent Labs: Laboratory Last Values Sodium 139 mEq/L (136-145) 10/10/18 06:09 Potassium 3.7 mEq/L (3.5-5.1) 10/10/18 06:09 Chloride 104 mEq/L (98-107) 10/10/18 06:09 Carbon Dioxide 27.6 mEq/L (21.0-31.0) 10/10/18 06:09 Anion Gap 11.1 (7.0-16.0) 10/10/18 06:09 BUN 21 mg/dL (7-25) 10/10/18 06:09 Creatinine 1.0 mg/dL (0.6-1.2) 10/10/18 06:09 Est GFR ( Amer) TNP 10/10/18 06:09 Est GFR (Non-Af Amer) TNP 10/10/18 06:09 BUN/Creatinine Ratio 21.0 10/10/18 06:09 Glucose 114 mg/dL (70-105) H 10/10/18 06:09 POC Glucose 113 MG/DL (70 - 105) H 10/10/18 04:27 Calcium 8.9 mg/dL (8.6-10.3) 10/10/18 06:09 Total Bilirubin 0.4 mg/dL (0.3-1.0) 10/10/18 06:09 AST 14 U/L (13-39) 10/10/18 06:09 ALT 9 U/L (7-52) 10/10/18 06:09 Alkaline Phosphatase 58 U/L (34-104) 10/10/18 06:09 Total Protein 6.2 gm/dL (6.0-8.3) 10/10/18 06:09 Albumin 3.9 gm/dL (3.7-5.3) 10/10/18 06:09 Globulin 2.3 gm/dL 10/10/18 06:09 Albumin/Globulin Ratio 1.7 (1.0-1.8) 10/10/18 06:09 Triglycerides 100 mg/dL (<150) 10/10/18 06:09 Cholesterol 149 mg/dL (<200) 10/10/18 06:09 LDL Cholesterol Direct 70 mg/dL (75-193) L 10/10/18 06:09 HDL Cholesterol 60 mg/dL (23-92) 10/10/18 06:09 - Physical Exam Vitals and I&O: Vital Signs Temp 0 F 10/20/18 20:31 Pulse 80 10/20/18 08:49 Resp 16 10/20/18 08:20 BP 122/64 10/20/18 08:49 Pulse Ox 97 10/20/18 06:15 Intake & Output 10/20/18 10/20/18 10/21/18 06:59 18:59 06:59 Intake Total 480 800 120 Balance 480 800 120 Intake: Oral 480 800 120 Other: # Voids 1 4 3 # Bowel Movements 0 0 Active Medications: Current Medications Acetaminophen (Tylenol) 650 mg PO Q4HR PRN PRN Reason: Mild Pain / Temp above 100 Stop: 12/09/18 04:58 Last Admin: 10/18/18 10:18 Dose: 650 mg Al Hydrox/Mg Hydrox/Simethicone (Maalox) 30 ml PO Q4HR PRN PRN Reason: GI DISTRESS Stop: 12/09/18 04:58 Last Admin: 10/18/18 10:21 Dose: 30 ml Albuterol/Ipratropium (Duoneb Neb) 3 ml HHN Q6HR PRN PRN Reason: Wheezing Stop: 12/18/18 13:13 Amlodipine Besylate (Norvasc) 2.5 mg PO DAILY [facility] Stop: 12/09/18 08:59 Last Admin: 10/20/18 08:46 Dose: 2.5 mg Atenolol (Tenormin) 25 mg PO DAILY [facility] Stop: 12/09/18 08:59 Last Admin: 10/20/18 08:49 Dose: 25 mg Atorvastatin Calcium (Lipitor) 10 mg PO DAILY [facility]; Protocol Stop: 12/09/18 08:59 Last Admin: 10/20/18 08:48 Dose: 10 mg Docusate Sodium (Colace) 100 mg PO BID [facility] Stop: 12/09/18 08:59 Last Admin: 10/20/18 16:57 Dose: 100 mg Escitalopram Oxalate (Lexapro) 20 mg PO DAILY [facility]; Protocol Stop: 12/09/18 08:59 Last Admin: 10/20/18 08:48 Dose: 20 mg Lorazepam (Ativan) 0.5 mg PO Q4HR PRN; Protocol PRN Reason: Agitation Stop: 12/18/18 17:39 Magnesium Hydroxide (Milk Of Magnesia) 30 ml PO HS PRN PRN Reason: Constipation Memantine (Namenda) 5 mg PO BID [facility] Stop: 12/09/18 08:59 Last Admin: 10/20/18 16:57 Dose: 5 mg Nicotine (Nicotine Transdermal System) 21 mg TD DAILY [facility] Stop: 12/10/18 08:59 Last Admin: 10/20/18 08:51 Dose: Not Given Pantoprazole Sodium (Protonix) 40 mg PO DAILY [facility] Stop: 12/11/18 06:29 Last Admin: 10/20/18 08:48 Dose: 40 mg Quetiapine Fumarate (Seroquel) 25 mg PO TIDWM [facility]; Protocol Stop: 12/18/18 11:59 Last Admin: 10/20/18 16:57 Dose: 25 mg General: demented HEENT: NC/AT, PERRLA, EOMI, anicteric sclerae, throat clear Neck: Supple, No JVD, No thyromegaly, +2 carotid pulse wo bruit Lungs: CTAB Cardiovascular: RRR, Normal S1, Normal S2, without murmur Abdomen: soft, non-tender, non-distended Extremities: clear Neurological: no change Internal Medicine Assmt/Plan - Assessment Assessment: 1.HTN. 2.HYPERLIPIDEMIA. 3.COPD. 4.DEMENTIA. 5.PSYCHOSIS. - Plan Plan: CONTINUE ON CURRENT MEDICATION AND DIET. Nutritional Asmnt/Malnutr-PDOC - Dietary Evaluation Malnutrition Findings (Please click <Entered> for more info): Nutritional Asmnt/Malnutrition Start: 10/14/18 14: 03 Text: Status: Complete Freq: Protocol: Document 10/14/18 14:03 LCHENG (Rec: 10/14/18 14:15 [email or web address]) Nutritional Asmnt/Malnutrition Patient General Information Nutritional Screening Moderate Risk Diagnosis psychosis Pertinent Medical Hx/Surgical Hx bronchial asthma, HTN, hyperlipidemia, constipation Subjective Information Per nurse pt is very confused, not able to participate in communication. PO intake 75- 100% per EMR. Current Diet Order/ Nutrition Support THOM Pertinent Medications lipitor, colace, protonix, seroquel Pertinent Labs 10/10 glucose 114, POC 113 Nutritional Hx/Data Height 1.55 m Height (Calculated Centimeters) 154.9 Current Weight (lbs) 60.781 kg Weight (Calculated Kilograms) 60.8 Weight (Calculated Grams) 94888.4 [place] Body Weight 105 Body Mass Index (BMI) 25.3 Weight Status Overweight GI Symptoms GI Symptoms None Last BM 10/13 Difficult in: None Skin Integrity/Comment: intact Current %PO Good (75-100%) Estimated Nutritional Goals BEE in Kcals: Using Current wt Calories/Kcals/Kg 23-27 Kcals Calculated 7841-9710 Protein: Using Current wt Protein g/k Protein Calculated 61 Fluid: ml 1403-1647ml (1ml/kcal) Nutritional Problem 1. Problem Problem N/A Malnutrition Alert Is there a minimum of two criteria No selected? Query Text:Check all the applicable criteria. A minimum of two criteria are recommended for diagnosis of either severe or non-severe malnutrition. Malnutrition Related to Morbid Obesity Malnutrition related to morbid obesity No Intervention/Recommendation Comments 1. Continue with THOM diet as ordered. 2. Monitor PO intake, wt, labs and skin integrity 3. F/U as low risk in 7 days Expected Outcomes/Goals Expected Outcomes/Goals 1. PO intake to meet at least 75% of nutritional needs. 2. Wt stability, skin to remain intact, labs to approach WNL.
--- NOTE | 2018-10-20 22:21 | Progress Notes ---
DATE: SUBJECTIVE: Chart reviewed and the patient interviewed. Also discussed the patient's condition with the staff and reviewed the records and labs. The patient is still anxious and restless. The patient also is still intrusive to others and continues pacing up and down the unit in a confused state. The patient seems to be calmer and she seems to be easier to redirect. She also is compliant with taking her medications. ASSESSMENT: The patient is still agitated and psychotic. TREATMENT PLAN: Continue to monitor her behavior closely and also continue to work on discharge plans and possible placement issue. Also continue adjusting psychotropic medications. JOB# [id number]
[2018-10-21] MEDS: Atorvastatin Calcium 10 MG TAB PO SCH (09:02)
[2018-10-21] MEDS: Pantoprazole 40 mg EC Tab PO SCH (09:03)
[2018-10-21] MEDS: Nicotine 21 mg/24 hr Tdm TD SCH (09:04)
--- NOTE | 2018-10-21 19:04 | Internal Medicine Prog Note ---
Internal Medicine Subjective - Subjective Service Date: 10/21/18 Patient seen and examined:: with staff Patient is:: awake, verbal, ambulating, confused Per staff patient has:: no adverse event Internal Medicine Objective - Results Result Diagrams: 10/10/18 06:09 Recent Labs: Laboratory Last Values Sodium 139 mEq/L (136-145) 10/10/18 06:09 Potassium 3.7 mEq/L (3.5-5.1) 10/10/18 06:09 Chloride 104 mEq/L (98-107) 10/10/18 06:09 Carbon Dioxide 27.6 mEq/L (21.0-31.0) 10/10/18 06:09 Anion Gap 11.1 (7.0-16.0) 10/10/18 06:09 BUN 21 mg/dL (7-25) 10/10/18 06:09 Creatinine 1.0 mg/dL (0.6-1.2) 10/10/18 06:09 Est GFR ( Amer) TNP 10/10/18 06:09 Est GFR (Non-Af Amer) TNP 10/10/18 06:09 BUN/Creatinine Ratio 21.0 10/10/18 06:09 Glucose 114 mg/dL (70-105) H 10/10/18 06:09 POC Glucose 113 MG/DL (70 - 105) H 10/10/18 04:27 Calcium 8.9 mg/dL (8.6-10.3) 10/10/18 06:09 Total Bilirubin 0.4 mg/dL (0.3-1.0) 10/10/18 06:09 AST 14 U/L (13-39) 10/10/18 06:09 ALT 9 U/L (7-52) 10/10/18 06:09 Alkaline Phosphatase 58 U/L (34-104) 10/10/18 06:09 Total Protein 6.2 gm/dL (6.0-8.3) 10/10/18 06:09 Albumin 3.9 gm/dL (3.7-5.3) 10/10/18 06:09 Globulin 2.3 gm/dL 10/10/18 06:09 Albumin/Globulin Ratio 1.7 (1.0-1.8) 10/10/18 06:09 Triglycerides 100 mg/dL (<150) 10/10/18 06:09 Cholesterol 149 mg/dL (<200) 10/10/18 06:09 LDL Cholesterol Direct 70 mg/dL (75-193) L 10/10/18 06:09 HDL Cholesterol 60 mg/dL (23-92) 10/10/18 06:09 - Physical Exam Vitals and I&O: Vital Signs Temp 0 F 10/20/18 20:31 Pulse 80 10/20/18 08:49 Resp 16 10/20/18 08:20 BP 122/64 10/20/18 08:49 Pulse Ox 97 10/20/18 06:15 Intake & Output 10/21/18 10/21/18 10/22/18 06:59 18:59 06:59 Intake Total 120 700 Balance 120 700 Intake: Oral 120 700 Other: # Voids 1 2 # Bowel Movements 0 0 Active Medications: Current Medications Acetaminophen (Tylenol) 650 mg PO Q4HR PRN PRN Reason: Mild Pain / Temp above 100 Stop: 12/09/18 04:58 Last Admin: 10/18/18 10:18 Dose: 650 mg Al Hydrox/Mg Hydrox/Simethicone (Maalox) 30 ml PO Q4HR PRN PRN Reason: GI DISTRESS Stop: 12/09/18 04:58 Last Admin: 10/18/18 10:21 Dose: 30 ml Albuterol/Ipratropium (Duoneb Neb) 3 ml HHN Q6HR PRN PRN Reason: Wheezing Stop: 12/18/18 13:13 Amlodipine Besylate (Norvasc) 2.5 mg PO DAILY [facility] Stop: 12/09/18 08:59 Last Admin: 10/21/18 09:02 Dose: Not Given Atenolol (Tenormin) 25 mg PO DAILY [facility] Stop: 12/09/18 08:59 Last Admin: 10/21/18 09:03 Dose: Not Given Atorvastatin Calcium (Lipitor) 10 mg PO DAILY [facility]; Protocol Stop: 12/09/18 08:59 Last Admin: 10/21/18 09:02 Dose: 10 mg Docusate Sodium (Colace) 100 mg PO BID [facility] Stop: 12/09/18 08:59 Last Admin: 10/21/18 17:13 Dose: Not Given Escitalopram Oxalate (Lexapro) 20 mg PO DAILY [facility]; Protocol Stop: 12/09/18 08:59 Last Admin: 10/21/18 09:02 Dose: 20 mg Lorazepam (Ativan) 0.5 mg PO Q4HR PRN; Protocol PRN Reason: Agitation Stop: 12/18/18 17:39 Last Admin: 10/21/18 16:51 Dose: 0.5 mg Magnesium Hydroxide (Milk Of Magnesia) 30 ml PO HS PRN PRN Reason: Constipation Memantine (Namenda) 5 mg PO BID [facility] Stop: 12/09/18 08:59 Last Admin: 10/21/18 16:50 Dose: 5 mg Nicotine (Nicotine Transdermal System) 21 mg TD DAILY [facility] Stop: 12/10/18 08:59 Last Admin: 10/21/18 09:04 Dose: Not Given Pantoprazole Sodium (Protonix) 40 mg PO DAILY [facility] Stop: 12/11/18 06:29 Last Admin: 10/21/18 09:03 Dose: 40 mg Quetiapine Fumarate (Seroquel) 25 mg PO TIDWM [facility]; Protocol Stop: 12/18/18 11:59 Last Admin: 10/21/18 16:50 Dose: 25 mg General: demented HEENT: NC/AT, PERRLA, EOMI, anicteric sclerae, throat clear Neck: Supple, No JVD, No thyromegaly, +2 carotid pulse wo bruit Lungs: CTAB Cardiovascular: RRR, Normal S1, Normal S2, without murmur Abdomen: soft, non-tender, non-distended Extremities: clear Neurological: no change Internal Medicine Assmt/Plan - Assessment Assessment: 1.HTN. 2.HYPERLIPIDEMIA. 3.COPD. 4.DEMENTIA. 5.PSYCHOSIS. - Plan Plan: CONTINUE ON CURRENT MEDICATION AND DIET. Nutritional Asmnt/Malnutr-PDOC - Dietary Evaluation Malnutrition Findings (Please click <Entered> for more info): Nutritional Asmnt/Malnutrition Start: 10/14/18 14: 03 Text: Status: Complete Freq: Protocol: Document 10/14/18 14:03 LCHENG (Rec: 10/14/18 14:15 [email or web address]) Nutritional Asmnt/Malnutrition Patient General Information Nutritional Screening Moderate Risk Diagnosis psychosis Pertinent Medical Hx/Surgical Hx bronchial asthma, HTN, hyperlipidemia, constipation Subjective Information Per nurse pt is very confused, not able to participate in communication. PO intake 75- 100% per EMR. Current Diet Order/ Nutrition Support THMO Pertinent Medications lipitor, colace, protonix, seroquel Pertinent Labs 10/10 glucose 114, POC 113 Nutritional Hx/Data Height 1.55 m Height (Calculated Centimeters) 154.9 Current Weight (lbs) 60.781 kg Weight (Calculated Kilograms) 60.8 Weight (Calculated Grams) 03586.4 [place] Body Weight 105 Body Mass Index (BMI) 25.3 Weight Status Overweight GI Symptoms GI Symptoms None Last BM 10/13 Difficult in: None Skin Integrity/Comment: intact Current %PO Good (75-100%) Estimated Nutritional Goals BEE in Kcals: Using Current wt Calories/Kcals/Kg 23-27 Kcals Calculated 5186-4377 Protein: Using Current wt Protein g/k Protein Calculated 61 Fluid: ml 1403-1647ml (1ml/kcal) Nutritional Problem 1. Problem Problem N/A Malnutrition Alert Is there a minimum of two criteria No selected? Query Text:Check all the applicable criteria. A minimum of two criteria are recommended for diagnosis of either severe or non-severe malnutrition. Malnutrition Related to Morbid Obesity Malnutrition related to morbid obesity No Intervention/Recommendation Comments 1. Continue with THOM diet as ordered. 2. Monitor PO intake, wt, labs and skin integrity 3. F/U as low risk in 7 days Expected Outcomes/Goals Expected Outcomes/Goals 1. PO intake to meet at least 75% of nutritional needs. 2. Wt stability, skin to remain intact, labs to approach WNL.
--- NOTE | 2018-10-22 00:37 | Progress Notes ---
DATE: 10/21/2018 SUBJECTIVE: Chart reviewed and the patient interviewed. Also discussed the patient's condition with the staff and reviewed records and labs. The patient continued to be confused and forgetful. The patient also still has issues with following directions. The patient also is getting into other patient's rooms and picking up stuff that does not belong to her. She also is still showing poor judgment. ASSESSMENT/PRIMARY DIAGNOSIS: The patient is still confused and still needs lot of redirections. TREATMENT PLAN: Continue to monitor behavior and condition closely. Also we will continue working on behavioral modification and adjustment of psychotropic medications. JOB# [id number]
[2018-10-22] MEDS: Nicotine 21 mg/24 hr Tdm TD SCH (08:03)
[2018-10-22] MEDS: Pantoprazole 40 mg EC Tab PO SCH (09:32)
[2018-10-22] MEDS: Atorvastatin Calcium 10 MG TAB PO SCH (09:39)
--- NOTE | 2018-10-22 17:27 | Internal Medicine Prog Note ---
Internal Medicine Subjective - Subjective Service Date: 10/22/18 Patient seen and examined:: with staff Patient is:: awake, verbal, ambulating, confused Per staff patient has:: no adverse event Internal Medicine Objective - Results Result Diagrams: 10/10/18 06:09 Recent Labs: Laboratory Last Values Sodium 139 mEq/L (136-145) 10/10/18 06:09 Potassium 3.7 mEq/L (3.5-5.1) 10/10/18 06:09 Chloride 104 mEq/L (98-107) 10/10/18 06:09 Carbon Dioxide 27.6 mEq/L (21.0-31.0) 10/10/18 06:09 Anion Gap 11.1 (7.0-16.0) 10/10/18 06:09 BUN 21 mg/dL (7-25) 10/10/18 06:09 Creatinine 1.0 mg/dL (0.6-1.2) 10/10/18 06:09 Est GFR ( Amer) TNP 10/10/18 06:09 Est GFR (Non-Af Amer) TNP 10/10/18 06:09 BUN/Creatinine Ratio 21.0 10/10/18 06:09 Glucose 114 mg/dL (70-105) H 10/10/18 06:09 POC Glucose 113 MG/DL (70 - 105) H 10/10/18 04:27 Calcium 8.9 mg/dL (8.6-10.3) 10/10/18 06:09 Total Bilirubin 0.4 mg/dL (0.3-1.0) 10/10/18 06:09 AST 14 U/L (13-39) 10/10/18 06:09 ALT 9 U/L (7-52) 10/10/18 06:09 Alkaline Phosphatase 58 U/L (34-104) 10/10/18 06:09 Total Protein 6.2 gm/dL (6.0-8.3) 10/10/18 06:09 Albumin 3.9 gm/dL (3.7-5.3) 10/10/18 06:09 Globulin 2.3 gm/dL 10/10/18 06:09 Albumin/Globulin Ratio 1.7 (1.0-1.8) 10/10/18 06:09 Triglycerides 100 mg/dL (<150) 10/10/18 06:09 Cholesterol 149 mg/dL (<200) 10/10/18 06:09 LDL Cholesterol Direct 70 mg/dL (75-193) L 10/10/18 06:09 HDL Cholesterol 60 mg/dL (23-92) 10/10/18 06:09 - Physical Exam Vitals and I&O: Vital Signs Temp 0 F 10/20/18 20:31 Pulse 80 10/20/18 08:49 Resp 16 10/20/18 08:20 BP 122/64 10/20/18 08:49 Pulse Ox 97 10/20/18 06:15 Intake & Output 10/21/18 10/22/18 10/22/18 18:59 06:59 18:59 Intake Total 700 Balance 700 Intake: Oral 700 Other: # Voids 2 # Bowel Movements 0 Active Medications: Current Medications Acetaminophen (Tylenol) 650 mg PO Q4HR PRN PRN Reason: Mild Pain / Temp above 100 Stop: 12/09/18 04:58 Last Admin: 10/18/18 10:18 Dose: 650 mg Al Hydrox/Mg Hydrox/Simethicone (Maalox) 30 ml PO Q4HR PRN PRN Reason: GI DISTRESS Stop: 12/09/18 04:58 Last Admin: 10/18/18 10:21 Dose: 30 ml Albuterol/Ipratropium (Duoneb Neb) 3 ml HHN Q6HR PRN PRN Reason: Wheezing Stop: 12/18/18 13:13 Amlodipine Besylate (Norvasc) 2.5 mg PO DAILY [facility] Stop: 12/09/18 08:59 Last Admin: 10/22/18 08:11 Dose: Not Given Atenolol (Tenormin) 25 mg PO DAILY [facility] Stop: 12/09/18 08:59 Last Admin: 10/22/18 08:11 Dose: Not Given Atorvastatin Calcium (Lipitor) 10 mg PO DAILY [facility]; Protocol Stop: 12/09/18 08:59 Last Admin: 10/22/18 09:39 Dose: 10 mg Docusate Sodium (Colace) 100 mg PO BID [facility] Stop: 12/09/18 08:59 Last Admin: 10/22/18 08:12 Dose: Not Given Escitalopram Oxalate (Lexapro) 20 mg PO DAILY [facility]; Protocol Stop: 12/09/18 08:59 Last Admin: 10/22/18 09:33 Dose: 20 mg Lorazepam (Ativan) 0.5 mg PO Q4HR PRN; Protocol PRN Reason: Agitation Stop: 12/18/18 17:39 Last Admin: 10/22/18 13:58 Dose: 0.5 mg Magnesium Hydroxide (Milk Of Magnesia) 30 ml PO HS PRN PRN Reason: Constipation Memantine (Namenda) 5 mg PO BID [facility] Stop: 12/09/18 08:59 Last Admin: 10/22/18 09:32 Dose: 5 mg Nicotine (Nicotine Transdermal System) 21 mg TD DAILY [facility] Stop: 12/10/18 08:59 Last Admin: 10/22/18 08:03 Dose: Not Given Pantoprazole Sodium (Protonix) 40 mg PO DAILY [facility] Stop: 12/11/18 06:29 Last Admin: 10/22/18 09:32 Dose: 40 mg Quetiapine Fumarate (Seroquel) 25 mg PO TIDWM [facility]; Protocol Stop: 12/18/18 11:59 Last Admin: 10/22/18 13:00 Dose: 25 mg General: demented HEENT: NC/AT, PERRLA, EOMI, anicteric sclerae, throat clear Neck: Supple, No JVD, No thyromegaly, +2 carotid pulse wo bruit Lungs: CTAB Cardiovascular: RRR, Normal S1, Normal S2, without murmur Abdomen: soft, non-tender, non-distended Extremities: clear Neurological: no change Internal Medicine Assmt/Plan - Assessment Assessment: 1.HTN. 2.HYPERLIPIDEMIA. 3.COPD. 4.DEMENTIA. 5.PSYCHOSIS. - Plan Plan: CONTINUE ON CURRENT MEDICATION AND DIET. Nutritional Asmnt/Malnutr-PDOC - Dietary Evaluation Malnutrition Findings (Please click <Entered> for more info): Nutritional Asmnt/Malnutrition Start: 10/14/18 14: 03 Text: Status: Complete Freq: Protocol: Document 10/14/18 14:03 LCHENG (Rec: 10/14/18 14:15 [email or web address]) Nutritional Asmnt/Malnutrition Patient General Information Nutritional Screening Moderate Risk Diagnosis psychosis Pertinent Medical Hx/Surgical Hx bronchial asthma, HTN, hyperlipidemia, constipation Subjective Information Per nurse pt is very confused, not able to participate in communication. PO intake 75- 100% per EMR. Current Diet Order/ Nutrition Support THOM Pertinent Medications lipitor, colace, protonix, seroquel Pertinent Labs 10/10 glucose 114, POC 113 Nutritional Hx/Data Height 1.55 m Height (Calculated Centimeters) 154.9 Current Weight (lbs) 60.781 kg Weight (Calculated Kilograms) 60.8 Weight (Calculated Grams) 27222.4 [place] Body Weight 105 Body Mass Index (BMI) 25.3 Weight Status Overweight GI Symptoms GI Symptoms None Last BM 10/13 Difficult in: None Skin Integrity/Comment: intact Current %PO Good (75-100%) Estimated Nutritional Goals BEE in Kcals: Using Current wt Calories/Kcals/Kg 23-27 Kcals Calculated 6551-9510 Protein: Using Current wt Protein g/k Protein Calculated 61 Fluid: ml 1403-1647ml (1ml/kcal) Nutritional Problem 1. Problem Problem N/A Malnutrition Alert Is there a minimum of two criteria No selected? Query Text:Check all the applicable criteria. A minimum of two criteria are recommended for diagnosis of either severe or non-severe malnutrition. Malnutrition Related to Morbid Obesity Malnutrition related to morbid obesity No Intervention/Recommendation Comments 1. Continue with THOM diet as ordered. 2. Monitor PO intake, wt, labs and skin integrity 3. F/U as low risk in 7 days Expected Outcomes/Goals Expected Outcomes/Goals 1. PO intake to meet at least 75% of nutritional needs. 2. Wt stability, skin to remain intact, labs to approach WNL.
--- NOTE | 2018-10-22 19:57 | Progress Notes ---
DATE: 10/22/2018 The patient continues to be confused and she is still restless and anxious. The patient also is still pacing up and down the unit. The patient also still needs lots of redirections. Otherwise, the patient is compliant with taking her medications with no side effects of the medications. ASSESSMENT: The patient is still confused, agitated, and needs close monitoring. TREATMENT PLAN: We will continue monitoring the patient's behavior and condition closely. Also, continue to work on her confusion and irritability, also working with her family in regard to the placement issue. JOB# [id number]
[2018-10-23] MEDS: Atorvastatin Calcium 10 MG TAB PO SCH ×2 (08:47→10:05)
[2018-10-23] MEDS: Pantoprazole 40 mg EC Tab PO SCH ×2 (08:47→10:04)
[2018-10-23] MEDS: Nicotine 21 mg/24 hr Tdm TD SCH ×2 (08:48→10:04)
--- NOTE | 2018-10-23 22:00 | Internal Medicine Prog Note ---
Internal Medicine Subjective - Subjective Service Date: 10/23/18 Patient seen and examined:: with staff Patient is:: awake, verbal, ambulating, confused Per staff patient has:: no adverse event Internal Medicine Objective - Results Result Diagrams: 10/10/18 06:09 Recent Labs: Laboratory Last Values Sodium 139 mEq/L (136-145) 10/10/18 06:09 Potassium 3.7 mEq/L (3.5-5.1) 10/10/18 06:09 Chloride 104 mEq/L (98-107) 10/10/18 06:09 Carbon Dioxide 27.6 mEq/L (21.0-31.0) 10/10/18 06:09 Anion Gap 11.1 (7.0-16.0) 10/10/18 06:09 BUN 21 mg/dL (7-25) 10/10/18 06:09 Creatinine 1.0 mg/dL (0.6-1.2) 10/10/18 06:09 Est GFR ( Amer) TNP 10/10/18 06:09 Est GFR (Non-Af Amer) TNP 10/10/18 06:09 BUN/Creatinine Ratio 21.0 10/10/18 06:09 Glucose 114 mg/dL (70-105) H 10/10/18 06:09 POC Glucose 113 MG/DL (70 - 105) H 10/10/18 04:27 Calcium 8.9 mg/dL (8.6-10.3) 10/10/18 06:09 Total Bilirubin 0.4 mg/dL (0.3-1.0) 10/10/18 06:09 AST 14 U/L (13-39) 10/10/18 06:09 ALT 9 U/L (7-52) 10/10/18 06:09 Alkaline Phosphatase 58 U/L (34-104) 10/10/18 06:09 Total Protein 6.2 gm/dL (6.0-8.3) 10/10/18 06:09 Albumin 3.9 gm/dL (3.7-5.3) 10/10/18 06:09 Globulin 2.3 gm/dL 10/10/18 06:09 Albumin/Globulin Ratio 1.7 (1.0-1.8) 10/10/18 06:09 Triglycerides 100 mg/dL (<150) 10/10/18 06:09 Cholesterol 149 mg/dL (<200) 10/10/18 06:09 LDL Cholesterol Direct 70 mg/dL (75-193) L 10/10/18 06:09 HDL Cholesterol 60 mg/dL (23-92) 10/10/18 06:09 - Physical Exam Vitals and I&O: Vital Signs Temp 97.8 F 10/23/18 14:00 Pulse 78 10/23/18 20:09 Resp 18 10/23/18 20:09 BP 154/80 10/23/18 14:00 Pulse Ox 95 10/23/18 20:09 Intake & Output 10/23/18 10/23/18 10/24/18 06:59 18:59 06:59 Intake Total 480 1000 480 Balance 480 1000 480 Intake: Oral 480 1000 480 Other: # Voids 1 4 1 # Bowel Movements 1 Active Medications: Current Medications Acetaminophen (Tylenol) 650 mg PO Q4HR PRN PRN Reason: Mild Pain / Temp above 100 Stop: 12/09/18 04:58 Last Admin: 10/18/18 10:18 Dose: 650 mg Al Hydrox/Mg Hydrox/Simethicone (Maalox) 30 ml PO Q4HR PRN PRN Reason: GI DISTRESS Stop: 12/09/18 04:58 Last Admin: 10/18/18 10:21 Dose: 30 ml Albuterol/Ipratropium (Duoneb Neb) 3 ml HHN Q6HR PRN PRN Reason: Wheezing Stop: 12/18/18 13:13 Amlodipine Besylate (Norvasc) 2.5 mg PO DAILY [facility] Stop: 12/09/18 08:59 Last Admin: 10/23/18 10:05 Dose: Not Given Atenolol (Tenormin) 25 mg PO DAILY [facility] Stop: 12/09/18 08:59 Last Admin: 10/23/18 10:05 Dose: Not Given Atorvastatin Calcium (Lipitor) 10 mg PO DAILY [facility]; Protocol Stop: 12/09/18 08:59 Last Admin: 10/23/18 10:05 Dose: Not Given Docusate Sodium (Colace) 100 mg PO BID [facility] Stop: 12/09/18 08:59 Last Admin: 10/23/18 16:09 Dose: 100 mg Escitalopram Oxalate (Lexapro) 20 mg PO DAILY [facility]; Protocol Stop: 12/09/18 08:59 Last Admin: 10/23/18 10:05 Dose: Not Given Lorazepam (Ativan) 0.5 mg PO Q4HR PRN; Protocol PRN Reason: Agitation Stop: 12/18/18 17:39 Last Admin: 10/23/18 20:25 Dose: 0.5 mg Magnesium Hydroxide (Milk Of Magnesia) 30 ml PO HS PRN PRN Reason: Constipation Memantine (Namenda) 5 mg PO BID [facility] Stop: 12/09/18 08:59 Last Admin: 10/23/18 16:09 Dose: 5 mg Nicotine (Nicotine Transdermal System) 21 mg TD DAILY [facility] Stop: 12/10/18 08:59 Last Admin: 10/23/18 10:04 Dose: Not Given Pantoprazole Sodium (Protonix) 40 mg PO DAILY [facility] Stop: 12/11/18 06:29 Last Admin: 10/23/18 10:04 Dose: Not Given Quetiapine Fumarate (Seroquel) 25 mg PO TIDWM [facility]; Protocol Stop: 12/18/18 11:59 Last Admin: 10/23/18 16:09 Dose: 25 mg General: demented HEENT: NC/AT, PERRLA, EOMI, anicteric sclerae, throat clear Neck: Supple, No JVD, No thyromegaly, +2 carotid pulse wo bruit Lungs: CTAB Cardiovascular: RRR, Normal S1, Normal S2, without murmur Abdomen: soft, non-tender, non-distended Extremities: clear Neurological: no change Internal Medicine Assmt/Plan - Assessment Assessment: 1.HTN. 2.HYPERLIPIDEMIA. 3.COPD. 4.DEMENTIA. 5.PSYCHOSIS. - Plan Plan: CONTINUE ON CURRENT MEDICATION AND DIET. Nutritional Asmnt/Malnutr-PDOC - Dietary Evaluation Malnutrition Findings (Please click <Entered> for more info): Nutritional Asmnt/Malnutrition Start: 10/14/18 14: 03 Text: Status: Complete Freq: Protocol: Document 10/14/18 14:03 LCHENG (Rec: 10/14/18 14:15 [email or web address]) Nutritional Asmnt/Malnutrition Patient General Information Nutritional Screening Moderate Risk Diagnosis psychosis Pertinent Medical Hx/Surgical Hx bronchial asthma, HTN, hyperlipidemia, constipation Subjective Information Per nurse pt is very confused, not able to participate in communication. PO intake 75- 100% per EMR. Current Diet Order/ Nutrition Support THOM Pertinent Medications lipitor, colace, protonix, seroquel Pertinent Labs 10/10 glucose 114, POC 113 Nutritional Hx/Data Height 1.55 m Height (Calculated Centimeters) 154.9 Current Weight (lbs) 60.781 kg Weight (Calculated Kilograms) 60.8 Weight (Calculated Grams) 69461.4 [place] Body Weight 105 Body Mass Index (BMI) 25.3 Weight Status Overweight GI Symptoms GI Symptoms None Last BM 10/13 Difficult in: None Skin Integrity/Comment: intact Current %PO Good (75-100%) Estimated Nutritional Goals BEE in Kcals: Using Current wt Calories/Kcals/Kg 23-27 Kcals Calculated 9657-9087 Protein: Using Current wt Protein g/k Protein Calculated 61 Fluid: ml 1403-1647ml (1ml/kcal) Nutritional Problem 1. Problem Problem N/A Malnutrition Alert Is there a minimum of two criteria No selected? Query Text:Check all the applicable criteria. A minimum of two criteria are recommended for diagnosis of either severe or non-severe malnutrition. Malnutrition Related to Morbid Obesity Malnutrition related to morbid obesity No Intervention/Recommendation Comments 1. Continue with THOM diet as ordered. 2. Monitor PO intake, wt, labs and skin integrity 3. F/U as low risk in 7 days Expected Outcomes/Goals Expected Outcomes/Goals 1. PO intake to meet at least 75% of nutritional needs. 2. Wt stability, skin to remain intact, labs to approach WNL.
[2018-10-24] MEDS: Atorvastatin Calcium 10 MG TAB PO SCH (08:37)
[2018-10-24] MEDS: Pantoprazole 40 mg EC Tab PO SCH (08:37)
[2018-10-24] MEDS: Nicotine 21 mg/24 hr Tdm TD SCH ×2 (09:26→09:31)
--- NOTE | 2018-10-24 20:42 | Progress Notes ---
DATE: SUBJECTIVE: The patient was seen, chart reviewed, and discussed with staff. The patient continues to be anxious, irritable, confused, seen pacing up and down the hallway, sometimes talking to herself, continues to need numerous redirections. She has, however, been compliant with her medications. Denies any undue side effects at this time. PLAN: The patient continues to be confused, irritable, so that she will require continued inpatient care center treatment. We will monitor the patient on a daily basis for response to medication and titrate medication as needed. JOB# [id number]
--- NOTE | 2018-10-24 20:56 | Internal Medicine Prog Note ---
Internal Medicine Subjective - Subjective Service Date: 10/24/18 Patient seen and examined:: with staff Patient is:: awake, verbal, ambulating, confused Per staff patient has:: no adverse event Internal Medicine Objective - Results Result Diagrams: 10/10/18 06:09 Recent Labs: Laboratory Last Values Sodium 139 mEq/L (136-145) 10/10/18 06:09 Potassium 3.7 mEq/L (3.5-5.1) 10/10/18 06:09 Chloride 104 mEq/L (98-107) 10/10/18 06:09 Carbon Dioxide 27.6 mEq/L (21.0-31.0) 10/10/18 06:09 Anion Gap 11.1 (7.0-16.0) 10/10/18 06:09 BUN 21 mg/dL (7-25) 10/10/18 06:09 Creatinine 1.0 mg/dL (0.6-1.2) 10/10/18 06:09 Est GFR ( Amer) TNP 10/10/18 06:09 Est GFR (Non-Af Amer) TNP 10/10/18 06:09 BUN/Creatinine Ratio 21.0 10/10/18 06:09 Glucose 114 mg/dL (70-105) H 10/10/18 06:09 POC Glucose 113 MG/DL (70 - 105) H 10/10/18 04:27 Calcium 8.9 mg/dL (8.6-10.3) 10/10/18 06:09 Total Bilirubin 0.4 mg/dL (0.3-1.0) 10/10/18 06:09 AST 14 U/L (13-39) 10/10/18 06:09 ALT 9 U/L (7-52) 10/10/18 06:09 Alkaline Phosphatase 58 U/L (34-104) 10/10/18 06:09 Total Protein 6.2 gm/dL (6.0-8.3) 10/10/18 06:09 Albumin 3.9 gm/dL (3.7-5.3) 10/10/18 06:09 Globulin 2.3 gm/dL 10/10/18 06:09 Albumin/Globulin Ratio 1.7 (1.0-1.8) 10/10/18 06:09 Triglycerides 100 mg/dL (<150) 10/10/18 06:09 Cholesterol 149 mg/dL (<200) 10/10/18 06:09 LDL Cholesterol Direct 70 mg/dL (75-193) L 10/10/18 06:09 HDL Cholesterol 60 mg/dL (23-92) 10/10/18 06:09 - Physical Exam Vitals and I&O: Vital Signs Temp 97.4 F 10/24/18 14:00 Pulse 63 10/24/18 19:40 Resp 20 10/24/18 19:40 BP 138/76 10/24/18 14:00 Pulse Ox 93 10/24/18 19:40 Intake & Output 10/24/18 10/24/18 10/25/18 06:59 18:59 06:59 Intake Total 480 1000 Balance 480 1000 Intake: Oral 480 1000 Other: # Voids 3 4 # Bowel Movements 0 1 Active Medications: Current Medications Acetaminophen (Tylenol) 650 mg PO Q4HR PRN PRN Reason: Mild Pain / Temp above 100 Stop: 12/09/18 04:58 Last Admin: 10/18/18 10:18 Dose: 650 mg Al Hydrox/Mg Hydrox/Simethicone (Maalox) 30 ml PO Q4HR PRN PRN Reason: GI DISTRESS Stop: 12/09/18 04:58 Last Admin: 10/18/18 10:21 Dose: 30 ml Albuterol/Ipratropium (Duoneb Neb) 3 ml HHN Q6HR PRN PRN Reason: Wheezing Stop: 12/18/18 13:13 Amlodipine Besylate (Norvasc) 2.5 mg PO DAILY [facility] Stop: 12/09/18 08:59 Last Admin: 10/24/18 08:38 Dose: 2.5 mg Atenolol (Tenormin) 25 mg PO DAILY [facility] Stop: 12/09/18 08:59 Last Admin: 10/24/18 08:38 Dose: 25 mg Atorvastatin Calcium (Lipitor) 10 mg PO DAILY [facility]; Protocol Stop: 12/09/18 08:59 Last Admin: 10/24/18 08:37 Dose: 10 mg Docusate Sodium (Colace) 100 mg PO BID [facility] Stop: 12/09/18 08:59 Last Admin: 10/24/18 17:09 Dose: 100 mg Escitalopram Oxalate (Lexapro) 20 mg PO DAILY [facility]; Protocol Stop: 12/09/18 08:59 Last Admin: 10/24/18 08:37 Dose: 20 mg Lorazepam (Ativan) 0.5 mg PO Q4HR PRN; Protocol PRN Reason: Agitation Stop: 12/18/18 17:39 Last Admin: 10/23/18 20:25 Dose: 0.5 mg Magnesium Hydroxide (Milk Of Magnesia) 30 ml PO HS PRN PRN Reason: Constipation Memantine (Namenda) 5 mg PO BID [facility] Stop: 12/09/18 08:59 Last Admin: 10/24/18 17:09 Dose: 5 mg Nicotine (Nicotine Transdermal System) 21 mg TD DAILY [facility] Stop: 12/10/18 08:59 Last Admin: 10/24/18 09:31 Dose: Not Given Pantoprazole Sodium (Protonix) 40 mg PO DAILY [facility] Stop: 12/11/18 06:29 Last Admin: 10/24/18 08:37 Dose: 40 mg Quetiapine Fumarate (Seroquel) 25 mg PO TIDWM [facility]; Protocol Stop: 12/18/18 11:59 Last Admin: 10/24/18 17:09 Dose: 25 mg General: demented HEENT: NC/AT, PERRLA, EOMI, anicteric sclerae, throat clear Neck: Supple, No JVD, No thyromegaly, +2 carotid pulse wo bruit Lungs: CTAB Cardiovascular: RRR, Normal S1, Normal S2, without murmur Abdomen: soft, non-tender, non-distended Extremities: clear Neurological: no change Internal Medicine Assmt/Plan - Assessment Assessment: 1.HTN. 2.HYPERLIPIDEMIA. 3.COPD. 4.DEMENTIA. 5.PSYCHOSIS. - Plan Plan: CONTINUE ON CURRENT MEDICATION AND DIET. Nutritional Asmnt/Malnutr-PDOC - Dietary Evaluation Malnutrition Findings (Please click <Entered> for more info): Nutritional Asmnt/Malnutrition Start: 10/14/18 14: 03 Text: Status: Complete Freq: Protocol: Document 10/14/18 14:03 LCHENG (Rec: 10/14/18 14:15 [email or web address]) Nutritional Asmnt/Malnutrition Patient General Information Nutritional Screening Moderate Risk Diagnosis psychosis Pertinent Medical Hx/Surgical Hx bronchial asthma, HTN, hyperlipidemia, constipation Subjective Information Per nurse pt is very confused, not able to participate in communication. PO intake 75- 100% per EMR. Current Diet Order/ Nutrition Support THOM Pertinent Medications lipitor, colace, protonix, seroquel Pertinent Labs 10/10 glucose 114, POC 113 Nutritional Hx/Data Height 1.55 m Height (Calculated Centimeters) 154.9 Current Weight (lbs) 60.781 kg Weight (Calculated Kilograms) 60.8 Weight (Calculated Grams) 05904.4 [place] Body Weight 105 Body Mass Index (BMI) 25.3 Weight Status Overweight GI Symptoms GI Symptoms None Last BM 10/13 Difficult in: None Skin Integrity/Comment: intact Current %PO Good (75-100%) Estimated Nutritional Goals BEE in Kcals: Using Current wt Calories/Kcals/Kg 23-27 Kcals Calculated 5802-7819 Protein: Using Current wt Protein g/k Protein Calculated 61 Fluid: ml 1403-1647ml (1ml/kcal) Nutritional Problem 1. Problem Problem N/A Malnutrition Alert Is there a minimum of two criteria No selected? Query Text:Check all the applicable criteria. A minimum of two criteria are recommended for diagnosis of either severe or non-severe malnutrition. Malnutrition Related to Morbid Obesity Malnutrition related to morbid obesity No Intervention/Recommendation Comments 1. Continue with THOM diet as ordered. 2. Monitor PO intake, wt, labs and skin integrity 3. F/U as low risk in 7 days Expected Outcomes/Goals Expected Outcomes/Goals 1. PO intake to meet at least 75% of nutritional needs. 2. Wt stability, skin to remain intact, labs to approach WNL.
[2018-10-25] MEDS: Atorvastatin Calcium 10 MG TAB PO SCH (09:06)
[2018-10-25] MEDS: Pantoprazole 40 mg EC Tab PO SCH (09:09)
[2018-10-25] MEDS: Nicotine 21 mg/24 hr Tdm TD SCH (09:09)
--- NOTE | 2018-10-25 20:01 | Internal Medicine Prog Note ---
Internal Medicine Subjective - Subjective Service Date: 10/25/18 Patient seen and examined:: with staff Patient is:: awake, verbal, ambulating, confused Per staff patient has:: no adverse event Internal Medicine Objective - Results Result Diagrams: 10/10/18 06:09 Recent Labs: Laboratory Last Values Sodium 139 mEq/L (136-145) 10/10/18 06:09 Potassium 3.7 mEq/L (3.5-5.1) 10/10/18 06:09 Chloride 104 mEq/L (98-107) 10/10/18 06:09 Carbon Dioxide 27.6 mEq/L (21.0-31.0) 10/10/18 06:09 Anion Gap 11.1 (7.0-16.0) 10/10/18 06:09 BUN 21 mg/dL (7-25) 10/10/18 06:09 Creatinine 1.0 mg/dL (0.6-1.2) 10/10/18 06:09 Est GFR ( Amer) TNP 10/10/18 06:09 Est GFR (Non-Af Amer) TNP 10/10/18 06:09 BUN/Creatinine Ratio 21.0 10/10/18 06:09 Glucose 114 mg/dL (70-105) H 10/10/18 06:09 POC Glucose 113 MG/DL (70 - 105) H 10/10/18 04:27 Calcium 8.9 mg/dL (8.6-10.3) 10/10/18 06:09 Total Bilirubin 0.4 mg/dL (0.3-1.0) 10/10/18 06:09 AST 14 U/L (13-39) 10/10/18 06:09 ALT 9 U/L (7-52) 10/10/18 06:09 Alkaline Phosphatase 58 U/L (34-104) 10/10/18 06:09 Total Protein 6.2 gm/dL (6.0-8.3) 10/10/18 06:09 Albumin 3.9 gm/dL (3.7-5.3) 10/10/18 06:09 Globulin 2.3 gm/dL 10/10/18 06:09 Albumin/Globulin Ratio 1.7 (1.0-1.8) 10/10/18 06:09 Triglycerides 100 mg/dL (<150) 10/10/18 06:09 Cholesterol 149 mg/dL (<200) 10/10/18 06:09 LDL Cholesterol Direct 70 mg/dL (75-193) L 10/10/18 06:09 HDL Cholesterol 60 mg/dL (23-92) 10/10/18 06:09 - Physical Exam Vitals and I&O: Vital Signs Temp 98.6 F 10/25/18 13:56 Pulse 63 10/25/18 19:49 Resp 18 10/25/18 19:49 BP 148/70 10/25/18 13:56 Pulse Ox 95 10/25/18 19:49 Intake & Output 10/25/18 10/25/18 10/26/18 06:59 18:59 06:59 Intake Total 120 Balance 120 Intake: Oral 120 Other: # Voids 3 Active Medications: Current Medications Acetaminophen (Tylenol) 650 mg PO Q4HR PRN PRN Reason: Mild Pain / Temp above 100 Stop: 12/09/18 04:58 Last Admin: 10/18/18 10:18 Dose: 650 mg Al Hydrox/Mg Hydrox/Simethicone (Maalox) 30 ml PO Q4HR PRN PRN Reason: GI DISTRESS Stop: 12/09/18 04:58 Last Admin: 10/18/18 10:21 Dose: 30 ml Albuterol/Ipratropium (Duoneb Neb) 3 ml HHN Q6HR PRN PRN Reason: Wheezing Stop: 12/18/18 13:13 Amlodipine Besylate (Norvasc) 2.5 mg PO DAILY [facility] Stop: 12/09/18 08:59 Last Admin: 10/25/18 09:09 Dose: Not Given Atenolol (Tenormin) 25 mg PO DAILY [facility] Stop: 12/09/18 08:59 Last Admin: 10/25/18 09:09 Dose: Not Given Atorvastatin Calcium (Lipitor) 10 mg PO DAILY [facility]; Protocol Stop: 12/09/18 08:59 Last Admin: 10/25/18 09:06 Dose: 10 mg Docusate Sodium (Colace) 100 mg PO BID [facility] Stop: 12/09/18 08:59 Last Admin: 10/25/18 09:09 Dose: Not Given Escitalopram Oxalate (Lexapro) 20 mg PO DAILY [facility]; Protocol Stop: 12/09/18 08:59 Last Admin: 10/25/18 09:06 Dose: 20 mg Lorazepam (Ativan) 0.5 mg PO Q4HR PRN; Protocol PRN Reason: Agitation Stop: 12/18/18 17:39 Last Admin: 10/25/18 16:59 Dose: 0.5 mg Magnesium Hydroxide (Milk Of Magnesia) 30 ml PO HS PRN PRN Reason: Constipation Memantine (Namenda) 5 mg PO BID [facility] Stop: 12/09/18 08:59 Last Admin: 10/25/18 16:59 Dose: 5 mg Nicotine (Nicotine Transdermal System) 21 mg TD DAILY [facility] Stop: 12/10/18 08:59 Last Admin: 10/25/18 09:09 Dose: Not Given Pantoprazole Sodium (Protonix) 40 mg PO DAILY [facility] Stop: 12/11/18 06:29 Last Admin: 10/25/18 09:09 Dose: Not Given Quetiapine Fumarate (Seroquel) 25 mg PO TIDWM [facility]; Protocol Stop: 12/18/18 11:59 Last Admin: 10/25/18 16:59 Dose: 25 mg General: demented HEENT: NC/AT, PERRLA, EOMI, anicteric sclerae, throat clear Neck: Supple, No JVD, No thyromegaly, +2 carotid pulse wo bruit Lungs: CTAB Cardiovascular: RRR, Normal S1, Normal S2, without murmur Abdomen: soft, non-tender, non-distended Extremities: clear Neurological: no change Internal Medicine Assmt/Plan - Assessment Assessment: 1.HTN. 2.HYPERLIPIDEMIA. 3.COPD. 4.DEMENTIA. 5.PSYCHOSIS. - Plan Plan: CONTINUE ON CURRENT MEDICATION AND DIET. Nutritional Asmnt/Malnutr-PDOC - Dietary Evaluation Malnutrition Findings (Please click <Entered> for more info): Nutritional Asmnt/Malnutrition Start: 10/14/18 14: 03 Text: Status: Complete Freq: Protocol: Document 10/14/18 14:03 LCHENG (Rec: 10/14/18 14:15 [email or web address]) Nutritional Asmnt/Malnutrition Patient General Information Nutritional Screening Moderate Risk Diagnosis psychosis Pertinent Medical Hx/Surgical Hx bronchial asthma, HTN, hyperlipidemia, constipation Subjective Information Per nurse pt is very confused, not able to participate in communication. PO intake 75- 100% per EMR. Current Diet Order/ Nutrition Support THOM Pertinent Medications lipitor, colace, protonix, seroquel Pertinent Labs 10/10 glucose 114, POC 113 Nutritional Hx/Data Height 1.55 m Height (Calculated Centimeters) 154.9 Current Weight (lbs) 60.781 kg Weight (Calculated Kilograms) 60.8 Weight (Calculated Grams) 93070.4 [place] Body Weight 105 Body Mass Index (BMI) 25.3 Weight Status Overweight GI Symptoms GI Symptoms None Last BM 10/13 Difficult in: None Skin Integrity/Comment: intact Current %PO Good (75-100%) Estimated Nutritional Goals BEE in Kcals: Using Current wt Calories/Kcals/Kg 23-27 Kcals Calculated 8993-8717 Protein: Using Current wt Protein g/k Protein Calculated 61 Fluid: ml 1403-1647ml (1ml/kcal) Nutritional Problem 1. Problem Problem N/A Malnutrition Alert Is there a minimum of two criteria No selected? Query Text:Check all the applicable criteria. A minimum of two criteria are recommended for diagnosis of either severe or non-severe malnutrition. Malnutrition Related to Morbid Obesity Malnutrition related to morbid obesity No Intervention/Recommendation Comments 1. Continue with THOM diet as ordered. 2. Monitor PO intake, wt, labs and skin integrity 3. F/U as low risk in 7 days Expected Outcomes/Goals Expected Outcomes/Goals 1. PO intake to meet at least 75% of nutritional needs. 2. Wt stability, skin to remain intact, labs to approach WNL.
--- NOTE | 2018-10-26 02:49 | Progress Notes ---
DATE: 10/25/2018 SUBJECTIVE: The patient was seen, chart reviewed, and findings were discussed with staff. The patient continues to be very confused, irritable, anxious, responding to internal stimuli. She has ever been compliant with medications and denies any undue side effects. PLAN: The patient continues to be confused and unpredictable, so that she will require continued inpatient care facility and treatment. We will monitor on a daily basis for response to medication and titrate as needed. [facility]# [id number]
[2018-10-26] MEDS: Atorvastatin Calcium 10 MG TAB PO SCH (08:09)
[2018-10-26] MEDS: Pantoprazole 40 mg EC Tab PO SCH (08:09)
[2018-10-26] MEDS: Nicotine 21 mg/24 hr Tdm TD SCH (09:00)
--- NOTE | 2018-10-26 20:08 | Progress Notes ---
DATE: 10/22/2018 PSYCHIATRIC PROGRESS NOTE SUBJECTIVE: Chart reviewed and the patient interviewed. Also discussed the patient's condition with the staff and reviewed records and labs. The patient continued to be confused and forgetful and she needs lots of redirections. The patient also continued to wander from one room to another and entering other rooms. The patient also is picking up other patient's objects and take it out of their rooms. She also is still showing poor judgment and she seems to be a kind of have no directions while wandering in the unit. The patient also when staff tried to redirect her, her response is "I don't know what to do." ASSESSMENT: The patient is still confused and considered to be gravely disabled. TREATMENT PLAN: Continue monitoring her behavior and her condition closely. Also, continue Lexapro, Seroquel, and Namenda and continue to follow up closely. JOB# [id number]
--- NOTE | 2018-10-26 20:57 | Internal Medicine Prog Note ---
Internal Medicine Subjective - Subjective Service Date: 10/26/18 Patient seen and examined:: without staff (SHE FEELS BETTER.) Patient is:: awake, verbal, ambulating, confused Per staff patient has:: no adverse event Internal Medicine Objective - Results Result Diagrams: 10/10/18 06:09 Recent Labs: Laboratory Last Values Sodium 139 mEq/L (136-145) 10/10/18 06:09 Potassium 3.7 mEq/L (3.5-5.1) 10/10/18 06:09 Chloride 104 mEq/L (98-107) 10/10/18 06:09 Carbon Dioxide 27.6 mEq/L (21.0-31.0) 10/10/18 06:09 Anion Gap 11.1 (7.0-16.0) 10/10/18 06:09 BUN 21 mg/dL (7-25) 10/10/18 06:09 Creatinine 1.0 mg/dL (0.6-1.2) 10/10/18 06:09 Est GFR ( Amer) TNP 10/10/18 06:09 Est GFR (Non-Af Amer) TNP 10/10/18 06:09 BUN/Creatinine Ratio 21.0 10/10/18 06:09 Glucose 114 mg/dL (70-105) H 10/10/18 06:09 POC Glucose 113 MG/DL (70 - 105) H 10/10/18 04:27 Calcium 8.9 mg/dL (8.6-10.3) 10/10/18 06:09 Total Bilirubin 0.4 mg/dL (0.3-1.0) 10/10/18 06:09 AST 14 U/L (13-39) 10/10/18 06:09 ALT 9 U/L (7-52) 10/10/18 06:09 Alkaline Phosphatase 58 U/L (34-104) 10/10/18 06:09 Total Protein 6.2 gm/dL (6.0-8.3) 10/10/18 06:09 Albumin 3.9 gm/dL (3.7-5.3) 10/10/18 06:09 Globulin 2.3 gm/dL 10/10/18 06:09 Albumin/Globulin Ratio 1.7 (1.0-1.8) 10/10/18 06:09 Triglycerides 100 mg/dL (<150) 10/10/18 06:09 Cholesterol 149 mg/dL (<200) 10/10/18 06:09 LDL Cholesterol Direct 70 mg/dL (75-193) L 10/10/18 06:09 HDL Cholesterol 60 mg/dL (23-92) 10/10/18 06:09 - Physical Exam Vitals and I&O: Vital Signs Temp 97.9 F 10/26/18 16:49 Pulse 55 10/26/18 16:49 Resp 20 10/26/18 16:49 BP 126/73 10/26/18 16:49 Pulse Ox 95 10/26/18 16:49 Intake & Output 10/26/18 10/26/18 10/27/18 06:59 18:59 06:59 Intake Total 300 900 180 Balance 300 900 180 Intake: Oral 300 900 180 Other: # Voids 1 4 1 # Bowel Movements 0 0 0 Active Medications: Current Medications Acetaminophen (Tylenol) 650 mg PO Q4HR PRN PRN Reason: Mild Pain / Temp above 100 Stop: 12/09/18 04:58 Last Admin: 10/18/18 10:18 Dose: 650 mg Al Hydrox/Mg Hydrox/Simethicone (Maalox) 30 ml PO Q4HR PRN PRN Reason: GI DISTRESS Stop: 12/09/18 04:58 Last Admin: 10/18/18 10:21 Dose: 30 ml Albuterol/Ipratropium (Duoneb Neb) 3 ml HHN Q6HR PRN PRN Reason: Wheezing Stop: 12/18/18 13:13 Amlodipine Besylate (Norvasc) 2.5 mg PO DAILY [facility] Stop: 12/09/18 08:59 Last Admin: 10/26/18 08:52 Dose: 2.5 mg Atenolol (Tenormin) 25 mg PO DAILY [facility] Stop: 12/09/18 08:59 Last Admin: 10/26/18 08:59 Dose: 25 mg Atorvastatin Calcium (Lipitor) 10 mg PO DAILY [facility]; Protocol Stop: 12/09/18 08:59 Last Admin: 10/26/18 08:09 Dose: 10 mg Docusate Sodium (Colace) 100 mg PO BID [facility] Stop: 12/09/18 08:59 Last Admin: 10/26/18 16:34 Dose: 100 mg Escitalopram Oxalate (Lexapro) 20 mg PO DAILY [facility]; Protocol Stop: 12/09/18 08:59 Last Admin: 10/26/18 08:10 Dose: 20 mg Lorazepam (Ativan) 0.5 mg PO Q4HR PRN; Protocol PRN Reason: Agitation Stop: 12/18/18 17:39 Last Admin: 10/25/18 16:59 Dose: 0.5 mg Magnesium Hydroxide (Milk Of Magnesia) 30 ml PO HS PRN PRN Reason: Constipation Memantine (Namenda) 5 mg PO BID [facility] Stop: 12/09/18 08:59 Last Admin: 10/26/18 16:34 Dose: 5 mg Nicotine (Nicotine Transdermal System) 21 mg TD DAILY [facility] Stop: 12/10/18 08:59 Last Admin: 10/26/18 09:00 Dose: Not Given Pantoprazole Sodium (Protonix) 40 mg PO DAILY [facility] Stop: 12/11/18 06:29 Last Admin: 10/26/18 08:09 Dose: 40 mg Quetiapine Fumarate (Seroquel) 25 mg PO TIDWM [facility]; Protocol Stop: 12/18/18 11:59 Last Admin: 10/26/18 16:34 Dose: 25 mg General: demented HEENT: NC/AT, PERRLA, EOMI, anicteric sclerae, throat clear Neck: Supple, No JVD, No thyromegaly, +2 carotid pulse wo bruit Lungs: CTAB Cardiovascular: RRR, Normal S1, Normal S2, without murmur Abdomen: soft, non-tender, non-distended Extremities: clear Neurological: no change Internal Medicine Assmt/Plan - Assessment Assessment: 1.HTN. 2.HYPERLIPIDEMIA. 3.COPD. 4.DEMENTIA. 5.PSYCHOSIS. - Plan Plan: CONTINUE ON CURRENT MEDICATION AND DIET. Nutritional Asmnt/Malnutr-PDOC - Dietary Evaluation Malnutrition Findings (Please click <Entered> for more info): Nutritional Asmnt/Malnutrition Start: 10/14/18 14: 03 Text: Status: Complete Freq: Protocol: Document 10/14/18 14:03 LCHENG (Rec: 10/14/18 14:15 [email or web address]) Nutritional Asmnt/Malnutrition Patient General Information Nutritional Screening Moderate Risk Diagnosis psychosis Pertinent Medical Hx/Surgical Hx bronchial asthma, HTN, hyperlipidemia, constipation Subjective Information Per nurse pt is very confused, not able to participate in communication. PO intake 75- 100% per EMR. Current Diet Order/ Nutrition Support TOHM Pertinent Medications lipitor, colace, protonix, seroquel Pertinent Labs 10/10 glucose 114, POC 113 Nutritional Hx/Data Height 1.55 m Height (Calculated Centimeters) 154.9 Current Weight (lbs) 60.781 kg Weight (Calculated Kilograms) 60.8 Weight (Calculated Grams) 32647.4 [place] Body Weight 105 Body Mass Index (BMI) 25.3 Weight Status Overweight GI Symptoms GI Symptoms None Last BM 10/13 Difficult in: None Skin Integrity/Comment: intact Current %PO Good (75-100%) Estimated Nutritional Goals BEE in Kcals: Using Current wt Calories/Kcals/Kg 23-27 Kcals Calculated 3370-8286 Protein: Using Current wt Protein g/k Protein Calculated 61 Fluid: ml 1403-1647ml (1ml/kcal) Nutritional Problem 1. Problem Problem N/A Malnutrition Alert Is there a minimum of two criteria No selected? Query Text:Check all the applicable criteria. A minimum of two criteria are recommended for diagnosis of either severe or non-severe malnutrition. Malnutrition Related to Morbid Obesity Malnutrition related to morbid obesity No Intervention/Recommendation Comments 1. Continue with THOM diet as ordered. 2. Monitor PO intake, wt, labs and skin integrity 3. F/U as low risk in 7 days Expected Outcomes/Goals Expected Outcomes/Goals 1. PO intake to meet at least 75% of nutritional needs. 2. Wt stability, skin to remain intact, labs to approach WNL.
--- NOTE | 2018-10-27 00:41 | Progress Notes ---
DATE: 10/26/2018 Case was discussed with staff of the patient, reviewed records. This is a well-known case to me. Covering for Dr. Crow. I have seen her before. I did the admission on 10/10/2018. The patient continues to be unable to participate in a meaningful conversation or make safe plan for self-care. Continues to be unpredictable, impulsive, needing redirection, demented, confused, anxious, responding to internal stimuli. She has been compliant to the medication with no side effects, no sedation, no nausea and no extrapyramidal symptoms. We will continue to work with the patient in group therapy and milieu therapy and adjust the medications as needed. JOB# [id number]
[2018-10-27] MEDS: Atorvastatin Calcium 10 MG TAB PO SCH (09:23)
[2018-10-27] MEDS: Nicotine 21 mg/24 hr Tdm TD SCH (09:24)
[2018-10-27] MEDS: Pantoprazole 40 mg EC Tab PO SCH (09:24)
--- NOTE | 2018-10-27 19:14 | Internal Medicine Prog Note ---
Internal Medicine Subjective - Subjective Service Date: 10/27/18 Patient seen and examined:: with staff (SHE FEELS BETTER) Patient is:: awake, verbal, ambulating, confused Per staff patient has:: no adverse event Internal Medicine Objective - Results Result Diagrams: 10/10/18 06:09 Recent Labs: Laboratory Last Values Sodium 139 mEq/L (136-145) 10/10/18 06:09 Potassium 3.7 mEq/L (3.5-5.1) 10/10/18 06:09 Chloride 104 mEq/L (98-107) 10/10/18 06:09 Carbon Dioxide 27.6 mEq/L (21.0-31.0) 10/10/18 06:09 Anion Gap 11.1 (7.0-16.0) 10/10/18 06:09 BUN 21 mg/dL (7-25) 10/10/18 06:09 Creatinine 1.0 mg/dL (0.6-1.2) 10/10/18 06:09 Est GFR ( Amer) TNP 10/10/18 06:09 Est GFR (Non-Af Amer) TNP 10/10/18 06:09 BUN/Creatinine Ratio 21.0 10/10/18 06:09 Glucose 114 mg/dL (70-105) H 10/10/18 06:09 POC Glucose 113 MG/DL (70 - 105) H 10/10/18 04:27 Calcium 8.9 mg/dL (8.6-10.3) 10/10/18 06:09 Total Bilirubin 0.4 mg/dL (0.3-1.0) 10/10/18 06:09 AST 14 U/L (13-39) 10/10/18 06:09 ALT 9 U/L (7-52) 10/10/18 06:09 Alkaline Phosphatase 58 U/L (34-104) 10/10/18 06:09 Total Protein 6.2 gm/dL (6.0-8.3) 10/10/18 06:09 Albumin 3.9 gm/dL (3.7-5.3) 10/10/18 06:09 Globulin 2.3 gm/dL 10/10/18 06:09 Albumin/Globulin Ratio 1.7 (1.0-1.8) 10/10/18 06:09 Triglycerides 100 mg/dL (<150) 10/10/18 06:09 Cholesterol 149 mg/dL (<200) 10/10/18 06:09 LDL Cholesterol Direct 70 mg/dL (75-193) L 10/10/18 06:09 HDL Cholesterol 60 mg/dL (23-92) 10/10/18 06:09 - Physical Exam Vitals and I&O: Vital Signs Temp 98.6 F 10/27/18 14:00 Pulse 55 10/27/18 14:00 Resp 20 10/27/18 14:00 BP 130/60 10/27/18 14:00 Pulse Ox 100 10/27/18 14:00 Intake & Output 10/27/18 10/27/18 10/28/18 06:59 18:59 06:59 Intake Total 180 900 Balance 180 900 Intake: Oral 180 900 Other: # Voids 3 3 # Bowel Movements 0 1 Active Medications: Current Medications Acetaminophen (Tylenol) 650 mg PO Q4HR PRN PRN Reason: Mild Pain / Temp above 100 Stop: 12/09/18 04:58 Last Admin: 10/18/18 10:18 Dose: 650 mg Al Hydrox/Mg Hydrox/Simethicone (Maalox) 30 ml PO Q4HR PRN PRN Reason: GI DISTRESS Stop: 12/09/18 04:58 Last Admin: 10/18/18 10:21 Dose: 30 ml Albuterol/Ipratropium (Duoneb Neb) 3 ml HHN Q6HR PRN PRN Reason: Wheezing Stop: 12/18/18 13:13 Amlodipine Besylate (Norvasc) 2.5 mg PO DAILY [facility] Stop: 12/09/18 08:59 Last Admin: 10/27/18 09:23 Dose: Not Given Atenolol (Tenormin) 25 mg PO DAILY [facility] Stop: 12/09/18 08:59 Last Admin: 10/27/18 09:23 Dose: Not Given Atorvastatin Calcium (Lipitor) 10 mg PO DAILY [facility]; Protocol Stop: 12/09/18 08:59 Last Admin: 10/27/18 09:23 Dose: Not Given Docusate Sodium (Colace) 100 mg PO BID [facility] Stop: 12/09/18 08:59 Last Admin: 10/27/18 16:09 Dose: Not Given Escitalopram Oxalate (Lexapro) 20 mg PO DAILY [facility]; Protocol Stop: 12/09/18 08:59 Last Admin: 10/27/18 09:23 Dose: 20 mg Lorazepam (Ativan) 0.5 mg PO Q4HR PRN; Protocol PRN Reason: Agitation Stop: 12/18/18 17:39 Last Admin: 10/27/18 16:10 Dose: 0.5 mg Magnesium Hydroxide (Milk Of Magnesia) 30 ml PO HS PRN PRN Reason: Constipation Memantine (Namenda) 5 mg PO BID [facility] Stop: 12/09/18 08:59 Last Admin: 10/27/18 16:10 Dose: 5 mg Nicotine (Nicotine Transdermal System) 21 mg TD DAILY [facility] Stop: 12/10/18 08:59 Last Admin: 10/27/18 09:24 Dose: Not Given Pantoprazole Sodium (Protonix) 40 mg PO DAILY [facility] Stop: 12/11/18 06:29 Last Admin: 10/27/18 09:24 Dose: Not Given Quetiapine Fumarate (Seroquel) 25 mg PO TIDWM [facility]; Protocol Stop: 12/18/18 11:59 Last Admin: 10/27/18 16:10 Dose: 25 mg General: demented HEENT: NC/AT, PERRLA, EOMI, anicteric sclerae, throat clear Neck: Supple, No JVD, No thyromegaly, +2 carotid pulse wo bruit Lungs: CTAB Cardiovascular: RRR, Normal S1, Normal S2, without murmur Abdomen: soft, non-tender, non-distended Extremities: clear Neurological: no change Internal Medicine Assmt/Plan - Assessment Assessment: 1.HTN. 2.HYPERLIPIDEMIA. 3.COPD. 4.DEMENTIA. 5.PSYCHOSIS. - Plan Plan: CONTINUE ON CURRENT MEDICATION AND DIET. Nutritional Asmnt/Malnutr-PDOC - Dietary Evaluation Malnutrition Findings (Please click <Entered> for more info): Nutritional Asmnt/Malnutrition Start: 10/14/18 14: 03 Text: Status: Complete Freq: Protocol: Document 10/14/18 14:03 LCHENG (Rec: 10/14/18 14:15 [email or web address]) Nutritional Asmnt/Malnutrition Patient General Information Nutritional Screening Moderate Risk Diagnosis psychosis Pertinent Medical Hx/Surgical Hx bronchial asthma, HTN, hyperlipidemia, constipation Subjective Information Per nurse pt is very confused, not able to participate in communication. PO intake 75- 100% per EMR. Current Diet Order/ Nutrition Support THOM Pertinent Medications lipitor, colace, protonix, seroquel Pertinent Labs 10/10 glucose 114, POC 113 Nutritional Hx/Data Height 1.55 m Height (Calculated Centimeters) 154.9 Current Weight (lbs) 60.781 kg Weight (Calculated Kilograms) 60.8 Weight (Calculated Grams) 53794.4 [place] Body Weight 105 Body Mass Index (BMI) 25.3 Weight Status Overweight GI Symptoms GI Symptoms None Last BM 10/13 Difficult in: None Skin Integrity/Comment: intact Current %PO Good (75-100%) Estimated Nutritional Goals BEE in Kcals: Using Current wt Calories/Kcals/Kg 23-27 Kcals Calculated 1205-0972 Protein: Using Current wt Protein g/k Protein Calculated 61 Fluid: ml 1403-1647ml (1ml/kcal) Nutritional Problem 1. Problem Problem N/A Malnutrition Alert Is there a minimum of two criteria No selected? Query Text:Check all the applicable criteria. A minimum of two criteria are recommended for diagnosis of either severe or non-severe malnutrition. Malnutrition Related to Morbid Obesity Malnutrition related to morbid obesity No Intervention/Recommendation Comments 1. Continue with THOM diet as ordered. 2. Monitor PO intake, wt, labs and skin integrity 3. F/U as low risk in 7 days Expected Outcomes/Goals Expected Outcomes/Goals 1. PO intake to meet at least 75% of nutritional needs. 2. Wt stability, skin to remain intact, labs to approach WNL.
--- NOTE | 2018-10-27 19:59 | Progress Notes ---
DATE: 10/27/2018 Case was discussed with staff of the patient, reviewed records. The patient was very hostile today refused to talk to me, request a meaningful conversation. I keep asking her to answer my questions. The staff believes she is ready to go as she is at her basic level of functioning; however, she was very uncooperative, unpredictable, impulsive. No side effects with the medication, no sedation, no nausea, no extrapyramidal symptoms and we will continue to work with the patient in group therapy, milieu therapy, and adjust the medication as needed. JOB# [id number]
[2018-10-28] MEDS: Pantoprazole 40 mg EC Tab PO SCH (09:42)
[2018-10-28] MEDS: Atorvastatin Calcium 10 MG TAB PO SCH (09:42)
[2018-10-28] MEDS: Nicotine 21 mg/24 hr Tdm TD SCH (09:43)
--- NOTE | 2018-11-01 08:08 | Discharge Summary ---
DATE OF DISCHARGE: 10/28/2018 FINAL DIAGNOSIS/PRIMARY DIAGNOSIS: Unspecified psychosis. SECONDARY DIAGNOSIS: Dementia, moderate to severe, with psychotic features and behavioral disturbances. MEDICAL DIAGNOSES: 1. Asthma. 2. Hyperlipidemia. 3. Hypertension. REASON FOR HOSPITALIZATION: The patient was admitted to the hospital because of confusion, agitation, irritability, grave disability and unable to carry on coherent conversation or to give any exact report. HOSPITAL COURSE: The patient continued to be confused. The patient also continued to be agitated and continued to be entering other patient's rooms. The patient also was unable to provide any safe plan for self-care. She also was started on Seroquel and the dose adjusted to 25 mg 3 times a day. She also continued to take Namenda and the dose adjusted to 5 mg twice a day and Lexapro 20 mg every day. Gradually, the patient's affect was slightly brighter and she was still confused, but less agitated and less irritable. Also, it was slightly easier to redirect her. The patient also was not as agitated and she was not aggressive or angry and the patient was discharged from the hospital and [place] accepted the patient. PHYSICAL EXAMINATION: The patient shows no major medical issues. The patient had no major medical problems while in the hospital. AFTER DISCHARGE PLANS: [facility] the hospital [facility] to follow her [facility] there. EXPECTED OUTCOME AFTER DISCHARGE: Fair if the patient continues with her outpatient treatment and with discharge plans and continue to comply with taking her medications. [facility]# [id number]
== END 2018-10-28 18:37 | DRG 885 ==
LOC: GERO 03:44
PROVIDERS: ADMIT Psychiatry & Neurology Psychiatry; ATTEND Psychiatry & Neurology Psychiatry
DX: F29 Unspecified psychosis not due to a substance or known physiological condition (principal); F03.90 Unspecified dementia, unspecified severity, without behavioral disturbance, psychotic disturbance, mood disturbance, and anxiety; I10 Essential (primary) hypertension; E78.5 Hyperlipidemia, unspecified; J44.9 Chronic obstructive pulmonary disease, unspecified; F17.200 Nicotine dependence, unspecified, uncomplicated
CPT/HCPCS: 36415-UA; 80053-TC; 80061-TC; 82948-90; 83036-90; 94640; 94760; G0410; Z7610